=== PATIENT | male | born 1960 | race Caucasian/White ===

== ENCOUNTER 2017-06-17 17:18 | Emergency (ER) | payer OTHER ==
[2017-06-17 18:40] VITALS: BP 150/84
--- NOTE | 2017-06-17 18:58 | UC ---
Ear Complaint HPI - HPI Summary HPI Summary: Ear pain and pressure x 1 week. Waking up "drenched in sweat" every morning. Chills since last night, feels feverish now. Always has productive cough when he lies down. Concerned he has ear infections. Recently dxed with bronchitis, put on augmentin -- he finished this about 2 weeks ago. - History of Current Complaint Stated Complaint: HEADACHE/SORE THROAT/RIGHT EAR Time Seen by Provider: 06/17/17 18:38 Hx Obtained From: Patient Onset/Duration: Gradual Onset, Lasting Days Severity Initially: Mild Severity Currently: Moderate Associated Signs/Symptoms: Positive: Hearing Loss, URI Symptoms - Allergies/Home Medications Allergies/Adverse Reactions: Allergies Allergy/AdvReac Type Severity Reaction Status Date / Time Erythromycin AdvReac GI Verified 06/17/17 18:40 Home Medications: Home Medications Fluticasone NASAL SPRAY 50MCG* [Flonase NASAL SPRAY 50MCG*] 2 spray BOTH NARES DAILY 06/17/17 [History Confirmed 06/17/17] Lisinopril TAB* [Prinivil TAB 5 MG*] 1 tab PO DAILY 06/17/17 [History Confirmed 06/17/17] PMH/Surg Hx/FS Hx/Imm Hx Cardiovascular History: Hypertension Respiratory History: COPD - Surgical History Surgical History: None - Family History Known Family History: Positive: Unknown - Social History Alcohol Use: None Substance Use Type: None Smoking Status (MU): Light Every Day Tobacco Smoker Type: Cigarettes Amount Used/How Often: reports "under 1 ppd" Cessation Counseling: Patient Advised to Stop - Immunization History Most Recent Influenza Vaccination: 7310-0400 Review of Systems Constitutional: Fever, Chills Skin: Negative Eyes: Negative ENT: Sore Throat, Ear Ache Respiratory: Cough Cardiovascular: Negative Gastrointestinal: Negative Genitourinary: Negative Motor: Negative Neurovascular: Negative Musculoskeletal: Negative Neurological: Negative Psychological: Negative Is Patient Immunocompromised?: No All Other Systems Reviewed And Are Negative: Yes Physical Exam Triage Information Reviewed: Yes Appearance: No Pain Distress, Other: - poor grooming Vital Signs: Initial Vital Signs Temp 100.5 F 06/17/17 18:35 Pulse 90 06/17/17 18:35 Resp 17 06/17/17 18:35 BP 150/84 06/17/17 18:35 Pulse Ox 99 06/17/17 18:35 Vital Signs Reviewed: Yes Eye Exam: Normal Eyes: Positive: Conjunctiva Clear ENT: Positive: Hearing grossly normal, Pharynx normal, TMs normal. Negative: TM bulging, TM dull, TM red, Tonsillar swelling, Hoarse voice Dental Exam: Other - edentulous Neck exam: Normal Respiratory: Positive: Chest non-tender, Lungs clear, Normal breath sounds, No respiratory distress, No accessory muscle use Cardiovascular Exam: Normal Cardiovascular: Positive: RRR, No Murmur Musculoskeletal Exam: Normal Neurological Exam: Normal Neurological: Positive: Alert Psychological Exam: Normal Skin Exam: Normal Ear Complaint Course/Dx - Course Course Of Treatment: Rapid flu negative - Differential Dx/Diagnosis Provider Diagnoses: viral syndrome. [id number] Discharge - Discharge Plan Condition: Stable Disposition: HOME Prescriptions: Oseltamivir CAP* [Tamiflu CAP*] 75 mg PO BID #9 cap Patient Education Materials: Viral Syndrome (ED) Referrals: Janes Mcgowan MD [Primary Care Provider] - If Needed Additional Instructions: Take the tamiflu; I still suspect flu despite your rapid results. If you have fever longer than 5 days or trouble breathing, please see Dr. Mcgowan.
[2017-06-17] MEDS ORDERED: Oseltamivir CAP* 75 MG PO ONE (19:16)
== END 2017-06-17 19:24 | disposition home or self-care (01) ==
LOC: UCCORT 17:18
DX: B34.9 Viral infection, unspecified (principal); J11.1 Influenza due to unidentified influenza virus with other respiratory manifestations
CPT/HCPCS: 87502; 99212; A9270-GY; G0463

== ENCOUNTER 2018-09-05 09:44 | Inpatient (IN) | payer OTHER ==
--- NOTE | 2018-08-23 19:13 | HP ---
HISTORY AND PHYSICAL: DATE OF ADMISSION/SURGERY: 09/05/18 DATE OF OFFICE VISIT: 08/23/18 SURGEON: Wnidy Diane MD * (DICTATED BY OMAR GREEN) PROCEDURE: Left total hip arthroplasty. CHIEF COMPLAINT: Left hip pain. HISTORY OF PRESENT ILLNESS: Mr. Liu is a 58-year-old gentleman with continued complaints of left hip pain. He has failed conservative treatment and elected to proceed with a left total hip arthroplasty. PAST MEDICAL HISTORY: Hypertension and COPD. PAST SURGICAL HISTORY: Denies. CURRENT MEDICATIONS: 1. Lisinopril/hydrochlorothiazide 20/12.5 mg a day. 2. Fluticasone nasal spray as needed. 3. Zyrtec Allergy as needed. 4. Hydrocodone as needed. ALLERGIES: To ERYTHROMYCIN. FAMILY HISTORY: Diabetes. SOCIAL HISTORY: He is a 58-year-old gentleman, lives alone. Smokes 1 to 2 packs per day and some occasional marijuana. Denies use of alcohol. REVIEW OF SYSTEMS: A complete 14-point review of systems was reviewed with the patient. It was positive for COPD. He denies history of DVT, PE, hepatitis, HIV , or anesthesia problems. PHYSICAL EXAMINATION GENERAL: He is well developed, well nourished, in no acute distress. VITAL SIGNS: He stands 66 inches tall, weighs 162 pounds. Blood pressure is 111/66 and his heart rate is 82. HEENT: Normocephalic, atraumatic. NECK: Supple. No palpable lymph nodes. PULMONARY: The lungs are clear to auscultation bilaterally. CARDIO: Regular rate and rhythm. Strong S1, S2. ABDOMEN: Soft, nontender, nondistended. NEUROLOGICAL: He is alert and oriented x3. MUSCULOSKELETAL: Left lower extremity: The skin is intact. There are no open wounds or abrasions. He walks with an antalgic-type gait favoring his left hip. He has decreased internal and external rotation of the left hip. He has a 2+ dorsalis pedis pulse. He is able to dorsiflex and plantarflex and has intact sensation. ASSESSMENT AND PLAN: Mr. Liu is a 58-year-old gentleman with end-stage osteoarthritis of the left hip. He has failed conservative treatment and elected to proceed with a left total hip arthroplasty. The surgery is scheduled for 09/05/[address] Diane discussed the risks and benefits of the surgery at today's visit and all of his questions were answered. He will follow up with Dr. Diane 2 weeks after the surgery. OMAR GREEN [id number]/[facility] #: [id number] JEY
[~2018-09-05 09:44] MED LIST: Lactated Ringers 1000 ML Bag* 1,000 ML IV SCH; Magnesium Sulf 4 GM/100 ML IV* 4,000 MG/100 ML BAG IVPB ONE
--- OUTSIDE RECORDS SUMMARY | 2018-09-05 09:47 | XMS REPORT | Continuity of Care Document ---
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 Active Onset: 07/12/2018 Localized, primary osteoarthritis of the Windy Diane M.D. Active pelvic region and thigh Onset: 07/12/2018 Rheumatoid arthritis Windy Diane M.D. 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 Tobacco Use Start: Unknown Current Cigarette Smoker 2 Packs Daily Smoking Status Reviewed: 08/23/18 Current Cigarette Smoker 2 Packs Daily ETOH Use Rarely consumes alcohol Tobacco Use Start: Unknown Patient is a current 1 to 2 packs per smoker, smokes every day day Recreational Drug Use Denies Drug Use Exercise Type/Frequency Exercises sporadically Allergies, Adverse Reactions, Alerts Date Description Reaction Status Severity Comments 05/08/2014 Bee Sting Active 06/27/2018 Erythromycin Nausea Active 05/08/2014 NKDA Inactive Medications Medication Date Status Form Strength Qnty SIG Indications Ordering Provider Lisinopril-Hyd Active Tablets 20-12.5mg 1 PO q Unknown rochlorothiazi 000 day de Fluticasone Active Suspension 50mcg/Act 2 spray Unknown Propionate 000 q day Zyrtec Allergy Active Capsules 10mg 30caps 1 by Unknown 000 mouth every day Hydrocodone-Ac Active Tablets 10-325mg Blair, etaminophen 000 Derek LNeris, DIRECTOR [employer] MANAGEMENT Amoxicillin Hx Tablets 875mg 1 PO Unknown 000 - tid 019 Medications Administered in Office Medication Date Status Form Strength Qnty SIG Indications Ordering Provider Depomedrol Administered Injection Windy 40MG 019 Ayana Diane Immunizations Description No Information Available Vital Signs Date Vital Result Comment 08/23/2018 1:27pm Height 66 inches 5'6" Weight 164.00 lb BP Systolic 111 mmHg BP Diastolic 66 mmHg Respiratory Rate 15 /min Pain Level 4 BMI (Body Mass Index) 26.5 kg/m2 08/02/2018 1:07pm Height 66 inches 5'6" Weight 174.00 lb BP Systolic 111 mmHg BP Diastolic 64 mmHg Respiratory Rate 16 /min Pain Level 3 BMI (Body Mass Index) 28.1 kg/m2 07/17/2018 2:41pm Height 66 inches 5'6" Weight 178.00 lb BP Systolic Sitting 140 mmHg BP Diastolic Sitting 80 mmHg Pain Level 0 BMI (Body Mass Index) 28.7 kg/m2 07/12/2018 12:56pm Height 66 inches 5'6" Weight 178.00 lb BP Systolic 123 mmHg BP Diastolic 71 mmHg Respiratory Rate 15 /min Pain Level 6 BMI (Body Mass Index) 28.7 kg/m2 06/27/2018 10:34am Height 66 inches 5'6" Weight 180.00 lb Heart Rate 80 /min BP Systolic Sitting 146 mmHg BP Diastolic Sitting 82 mmHg Respiratory Rate 16 /min Pain Level 3 BMI (Body Mass Index) 29.0 kg/m2 05/08/2014 12:41pm Height 66 inches 5'6" Weight 164.12 lb Heart Rate 68 /min BP Systolic Sitting 110 mmHg BP Diastolic Sitting 62 mmHg Respiratory Rate 16 /min BMI (Body Mass Index) 26.5 kg/m2 Results Test Date Facility Test Result H/L Range Note Xray 07/12/2018 [facility] In House Inj/Aspir Major JT Or Bursa W/ <pending> US Procedures Date Code Description Status 07/12/2018 62389 Inj/Aspir Major JT Or Bursa W/ US Completed Encounters Type Date Location Provider Dx Diagnosis Office Visit 08/02/2018 Orthopedic Windy Diane, M16.12 Unilateral primary 1:15p [facility] osteoarthritis, left hip M25.552 Pain in left hip 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 M06.052 Rheumatoid arthritis without rheumatoid factor, left hip Office Visit 07/17/2018 [facility] Sharon Selwyn, M16.12 Unilateral primary 3:00p Of [facility] AGUIRRE osteoarthritis, left hip Office Visit 07/12/2018 Orthopedic Windy M54.32 Sciatica, left side 1:00p [facility] Ayana Diane C.M.ANeris M06.052 Rheumatoid arthritis without rheumatoid factor, left hip M25.552 Pain in left hip M16.12 Unilateral primary osteoarthritis, left hip 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 378.81 Palsy Of [facility] Deisy Camara M.D. Conjugate Gaze Plan of Treatment Future Appointment(s):09/16/2018 1:00 pm - Windy Diane M.D. at [facility]09/05/2018 1:30 pm - TETO Navarro at [facility]09/05/2018 1:30 pm - OMAR Huerta at [facility]09/05/2018 1:30 pm - Windy Diane M.D. at [facility]08/23/2018 - Windy Diane M.D.M16.12 Unilateral primary osteoarthritis, left hipFollow up:Follow up: 2 weeks after auamyzpG78.552 Pain in left hip
--- OUTSIDE RECORDS SUMMARY | 2018-09-05 09:48 | XMS REPORT | Continuity of Care Document ---
:1960 External Reference #:[id number] Author Name Derek Blair N.P. 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 [address] [place] [address] Advance Directives Description No Information Available Problems Date Description Provider Status Onset: 05/26/2014 Essential hypertension Cassidy Butt FNP Active Onset: 09/18/2011 Tobacco user Janes Mcgowan M.D. Active Onset: 05/01/2013 Arthralgia of the ankle and/or foot Janes Mcgowan M.D. Active Onset: 04/29/2014 Total oculomotor nerve palsy Cassidy Butt FNP Active Onset: 05/26/2014 Seasonal allergy Cassidy Butt FNP Active Onset: 05/26/2014 Environmental allergy Cassidy Butt FNP Active Onset: 10/09/2014 Atopic dermatitis Janes Mcgowan M.D. Active Onset: 10/09/2014 Gout Janes Mcgowan M.D. Active Onset: 09/18/2011 Chronic obstructive lung disease Janes Mcgowan M.D. Inactive Inactive: 04/22/2014 Onset: 09/18/2011 Allergic rhinitis Janes Mcgowan M.D. Inactive Inactive: 05/26/2014 Family History Date Family Member(s) Observation Comments Father due to "Not Relevant" () Father 67 Father Diabetes Father due to Congestive Heart Failure () Father Non Insulin Dependent Diabetes Father due to at age 67 () Father Dementia Mother 73 Mother Diabetes Mother Non Insulin Dependent Diabetes Mother tremors Children 2 Siblings 4 First Brother Kidney And Gastro Issues Social History Type Date Description Comments Sex Unknown Marital Status Legal Status: Tobacco Use Start: Unknown Current Cigarette Smoker Tobacco Use Start: Unknown Current Cigarette Smoker 1 Pack Daily Smoking Status Reviewed: 07/26/18 Current Cigarette Smoker 1 Pack Daily ETOH Use Rarely consumes alcohol Tobacco Use Start: Unknown Patient is a current smoker, smokes every day Allergies, Adverse Reactions, Alerts Date Description Reaction Status Severity Comments 11/29/2015 Erythromycin Nausea and Vomiting Active 09/15/2011 NKDA Inactive Medications Medication Date Status Form Strength Qnty SIG Indications Ordering Provider Claritin 07/03/19 Active Tablets 10mg 30tabs 1 by J30.9 Juan M, 19 mouth Ahmad M., every day M.D. Hydrocodone-Ac 05/28/20 Active Tablets 10-325mg 60tabs 1 tab by M25.552 Juan M, etaminophen 18 mouth Ahmad M., every 4 M.D. hours as needed M79.605 M25.562 Flonase 07/06/2017 Active Suspension 50mcg/Act 47.400ml 1 J30.9 Juan M, Allergy intranasal Ahmad Relief puff twice M., a day M.D. Prednisolone 07/06/2017 Active Suspension 1% 10ml 1 drops H10.45 Juan M, Acetate both eyes Ahmad twice a day M., as needed M.D. Aspir-81 05/20/[address] 81mg 30tabs 1 by mouth I10 Daquan, every day Kimberl y, SOAP MIXER Lisinopril-Hy 04/22/2014 Active Tablets 20-12.5mg 90tabs take 1 I10 Juan M, drochlorothia tablet by Janes morton mouth once M., daily in in M.D. the morning I10 Zyrtec Allergy 04/22/2014 Active Capsules 10mg OTC take 1 J30.9 Daquan, tablet at [place], bedtime SOAP MIXER as needed Tobramycin 07/26/2018 - Hx Solution 0.3% 5ml 2 drops H10.021 Juan M, 07/30/2018 both eyes Ahmahannah Starks, three M.D. times a day Cipro 07/26/2018 - Hx Tablets 500mg 20tabs 1 tab by H66.91 Juan M, 08/05/2018 mouth Janes MNeris, twice a M.D. day Cipro 07/12/2018 - Hx Tablets 500mg 20tabs 1 tab by J20.9 Juan M, 07/18/2018 mouth Janes Starks, twice a M.D. day Azithromycin 07/03/2018 - Hx Tablets 250mg 6tabs z xu uad J20.9 Juan M, 07/12/2018 Janes Starks, MCatarina. Prednisone 05/28/2018 - Hx Tablets 20mg 20tabs 2 tab by M25.552 Juan M, 06/13/2018 mouth Leixsmahannah M., daily 4 M.D. days,30x3 d,20x2d,1 0x7d Cipro 10/24/2017 - Hx Tablets 500mg 30tabs 1 tab by J20.9 Juan M, 11/08/2017 mouth Ahmahannah MNeris, twice a M.D. day Prednisone 10/24/2017 - Hx Tablets 20mg 20tabs 2 tab by J20.9 Juan M, 11/09/2017 mouth Ahmad M., daily 4 M.D. days,30x3 d,20x2d,1 0x7d Cipro 09/19/2017 - Hx Tablets 500mg 30tabs 1 tab by J20.9 Juan M, 09/29/2017 mouth Ahmahannah M., twice a M.D. day Prednisone 09/19/2017 - Hx Tablets 20mg 20tabs 2 tab by J20Ted Mcgowan, 10/05/2017 mouth Ahmad M., daily 4 M.D. days,30x3 d,20x2d,1 0x7d Cipro 07/27/2017 - Hx Tablets 500mg 30tabs 1 tab by Andie Nailshdi, 08/09/2017 mouth Ahmad M., twice a M.D. day Prednisone 07/06/2017 - Hx Tablets 20mg 18tabs 3 tab by Andie Nailshdi, 07/16/2017 mouth Ahmad M., daily 3 M.D. days, then 2 tab daily x 3 d , then 1 tab daily 3d Cipro 07/06/2017 - Hx Tablets 500mg 30tabs 1 tab by Andie Nailshdi, 07/18/2017 mouth Ahmad M., twice a M.D. day Prednisone 06/21/2017 - Hx Tablets 20mg 20tabs 2 tab by Andie Mcgowan, 07/03/2017 mouth Ahmad M., daily 4 M.D. days,30mg x3d,20mgx 2d,10gmx7 d Augmentin 06/21/2017 - Hx Tablets 875-125 20tabs 1 tab by Andie Nailshdi, 07/03/2017 mg mouth Ahmad M., twice a M.D. day x 10 days Tobramycin 05/17/2017 - Hx Solution 0.3% 10ml 2 drops H10.021 [facility], 05/22/2017 both eyes Ahmad M., three M.D. times a day Amoxicillin/Clav 05/17/2017 - Hx Tablets 875-125 30tabs 1 tab by juan manuel Baroneanate 05/27/2017 mg mouth Ahmad M., Potassium twice a M.D. day Amoxicillin/Clav 04/24/2017 - Hx Tablets 875-125 30tabs 1 tab by juan manuel Baroneanate 05/07/2017 mg mouth Ahmad M., Potassium twice a M.D. day Prednisone 04/24/2017 - Hx Tablets 20mg 20tabs 2 tab by Andie Mcgowan, 05/15/2017 mouth Ahmad M., daily 4 M.D. days,30x3 d,20x2d,1 0x7d Amoxicillin/Clav 03/23/2017 - Hx Tablets 875-125 30tabs 1 tab by perla Barone 04/07/2017 mg mouth Ahmahannah MNeris, Potassium twice a M.D. day Prednisone 03/23/2017 - Hx Tablets 20mg 20tabs 2 tab by Andie Mcgowan, 04/08/2017 mouth Ahmahannah M., daily 4 M.D. days,30x3 d,20x2d,1 0x7d Ciprofloxacin 02/23/2017 - Hx Tablets 500mg 30tabs 1 by Andie Mcgowan, HCL 03/05/2017 mouth Ahmahannah MNeris, twice a M.D. day Prednisone 02/23/2017 - Hx Tablets 20mg 20tabs 2 tab by Andie Mcgowan, 03/11/2017 mouth Lexismahannah M., daily 4 M.D. days,30x3 d,20x2d,1 0x7d Ciprofloxacin 02/24/2016 - Hx Tablets 500mg 30tabs 1 by Andie Mcgowan, HCL 03/10/2016 mouth Ahmahannah M., twice a M.D. day Prednisone 02/24/2016 - Hx Tablets 20mg 20tabs 2 tab by Andie Mcgowan, 03/11/2016 mouth Ahmad M., daily 4 M.D. days,30x3 d,20x2d,1 0x7d Amoxicillin 01/18/2016 - Hx Tablets 500mg 90tabs 2 tab by H66.93 Juan M, 01/28/2016 mouth Lexismahannah Starks, three M.D. times a day Andie Prednisone 01/18/2016 - Hx Tablets 20mg 20tabs 2 tab by mouth daily 4 R06.02 Juan M, 02/03/2016 days,30x3d,20x2d,10x7d Janes Starks M.D. M25.562 Andie Cipro 11/29/2015 - Hx Tablets 500mg 20tabs 1 twice a Janes Mcgowan 12/09/2015 day Layla Starks. Amoxicillin 06/29/2015 - Hx Tablets 500mg 90tabs 2 tab by Andie Mcgowan, [facility] 07/14/2015 mouth three Ayana Starks times a day Prednisone 06/29/2015 - Hx Tablets 20mg 20tabs 2 tab by R06.02 [facility], [facility] 07/15/2015 mouth daily Ayana Starks 4 days,30x3d,2 0x2d,10x7d M25.562 J44.9 Prednisone 02/08/2015 - Hx Tablets 20mg 19tabs 2 tab by mouth daily 4 461.8 [facility], 02/25/2015 days,30x3d,20x2d,10x7d Janes Starks M.D. 786.05 461.8 Amoxicillin 02/08/2015 - Hx Capsules 500mg 40caps 2 by mouth 461.8 [facility], [facility] 02/08/2015 twice a day Ayana Starks 382.9 Biaxin 02/08/2015 - Hx Tablets 500mg 20tabs 1 tab by mouth 461.8 [facility] , [facility] 02/21/2015 twice a day Ayana Starks 382.9 Azithromycin 02/02/2015 - Hx Tablets 250mg 6tabs take two 461.8 [facility], 02/06/2015 tablets by royer Myers as one M.D. dose on the first day then take one daily thereafter x 4 days Allopurinol 10/30/2014 - Hx Tablets 100mg 90tabs 1 by mouth 274.9 [facility] , 10/30/2014 every day Janes Starks M.D. 719.44 719.47 Allopurinol 10/30/2014 - Hx Tablets 300mg 30tabs 1 tab by M10.9 [facility], [facility] 06/18/2017 mouth every Ayana Starks day M25.572 Colchicine 10/29/2014 - Hx Tablets 0.6mg 90tabs 1 tab by 274.9 Juan M, [facility] 10/30/2014 mouth three Ayana Starks times a day as needed 719.44 719.47 Indomethacin 10/09/2014 - Hx Capsules 50mg 90caps 1 tab by 274.9 [facility] , [facility] mouth three MAyana Cordon times a day as needed 719.44 Amoxicillin 04/29/2014 - Hx Tablets 875mg 30tabs take 1 381.10 Daquan, 09/30/2014 tablet by Cassidy mouth SOAP MIXER three times a day for 10 days Flonase 04/22/2014 - Hx Suspension 50mcg/Ac 16gm two sprays J30.9 Daquan , 07/06/2017 t per Cassidy, nostril SOAP MIXER once a day as needed for allergy relief No Active 12/18/2013 - Hx Unknown Medications 12/18/2013 Biaxin 12/18/2013 - Hx Tablets 500mg 20tabs 1 tab by 461.8 [facility] 03[facility]2014 mouth Ayana Starks twice a day x10 days No Active 11/17/2013 - Hx [facility] Medications 11/17/2013 Ayana Starks Amoxicillin 11/17/2013 - Hx Tablets 500mg 42tabs 1 by mouth 486 [facility], [facility] 11/27/2013 three Ayana Starks times a day 382.9 Amoxicillin 04/28/2013 - Hx Tablets 500mg 30tabs 1 three 382.9 [facility] 05[facility] times a day Ayana Starks x10 day 461.8 466.0 Prednisone 04/28/2013 - Hx Tablets 20mg 19tabs 2 tab by mouth daily 4 496 [facility], 04/01/2014 days,30x3d,20x2d,10x7d Janes Starks M.D. 786.05 461.8 Amoxicillin 08/26/2012 - Hx Tablets 500mg 30tabs 1 three 382.9 Juan M, [facility] 09/[facility]2012 times a day Ayana Starks x10 day 461.8 Prednisone 08/26/2012 - Hx Tablets 20mg 8tabs 2 tab by 478.19 Juan M, [facility] 08/31/2012 mouth daily Ayana Starks 4 days Indocin 05/30/2012 - Hx Suppository 50mg 90units 1 three 719.43 Juan M, [facility] 02/19/2013 times a day Ayana Starks Medications Administered in Office Medication Date Status Form Strength Qnty SIG Indications Ordering Provider Lon 250 11/24/19 Administered Injection Juan M, 10 Janes Starks M.D. Immunizations Description No Information Available Vital Signs Date Vital Result Comment 08/06/2018 10:18am BP Systolic 122 mmHg BP Diastolic 82 mmHg Height 67 inches 5'7" Weight 158.00 lb BMI (Body Mass Index) 24.7 kg/m2 Heart Rate 94 /min Respiratory Rate 18 /min 07/26/2018 2:02pm BP Systolic 122 mmHg BP Diastolic 72 mmHg Height 67 inches 5'7" Weight 159.00 lb BMI (Body Mass Index) 24.9 kg/m2 Heart Rate 82 /min Body Temperature 97.1 F Respiratory Rate 16 /min 07/03/2018 11:00am BP Systolic 118 mmHg BP Diastolic 68 mmHg Height 67 inches 5'7" Weight 162.00 lb BMI (Body Mass Index) 25.4 kg/m2 Heart Rate 98 /min Body Temperature 97.7 F Respiratory Rate 16 /min 06/20/2018 9:27am BP Systolic 138 mmHg BP Diastolic 70 mmHg Height 67 inches 5'7" Weight 164.00 lb BMI (Body Mass Index) 25.7 kg/m2 Heart Rate 78 /min Respiratory Rate 16 /min 05/28/2018 9:06am BP Systolic 124 mmHg BP Diastolic 80 mmHg Height 67 inches 5'7" Weight 169.00 lb BMI (Body Mass Index) 26.5 kg/m2 Heart Rate 76 /min Respiratory Rate 16 /min 10/24/2017 11:01am BP Systolic 108 mmHg BP Diastolic 70 mmHg Height 67 inches 5'7" Weight 177.00 lb BMI (Body Mass Index) 27.7 kg/m2 Heart Rate 73 /min Body Temperature 97.6 F Respiratory Rate 18 /min 09/19/2017 9:36am BP Systolic 122 mmHg BP Diastolic 78 mmHg Height 67 inches 5'7" Weight 179.00 lb BMI (Body Mass Index) 28.0 kg/m2 Heart Rate 77 /min Body Temperature 97.1 F Respiratory Rate 18 /min 07/27/2017 10:09am BP Systolic 128 mmHg BP Diastolic 80 mmHg Height 67 inches 5'7" Weight 169.00 lb BMI (Body Mass Index) 26.5 kg/m2 Heart Rate 65 /min Body Temperature 96.9 F Respiratory Rate 18 /min 07/06/2017 10:04am BP Systolic 130 mmHg BP Diastolic 82 mmHg Height 67 inches 5'7" Weight 174.00 lb BMI (Body Mass Index) 27.2 kg/m2 Heart Rate 69 /min Body Temperature 97.0 F Respiratory Rate 18 /min 06/21/2017 10:28am BP Systolic 148 mmHg BP Diastolic 82 mmHg Height 67 inches 5'7" Weight 171.00 lb BMI (Body Mass Index) 26.8 kg/m2 Heart Rate 105 /min Body Temperature 96.7 F Respiratory Rate 18 /min 05/17/2017 10:44am BP Systolic 142 mmHg BP Diastolic 80 mmHg Height 67 inches 5'7" Weight 166.00 lb BMI (Body Mass Index) 26.0 kg/m2 Heart Rate 97 /min Body Temperature 97.8 F Respiratory Rate 18 /min 04/24/2017 11:10am BP Systolic 152 mmHg BP Diastolic 78 mmHg Height 67 inches 5'7" Weight 168.00 lb BMI (Body Mass Index) 26.3 kg/m2 Heart Rate 62 /min Body Temperature 97.2 F Respiratory Rate 16 /min 03/23/2017 9:38am BP Systolic 132 mmHg BP Diastolic 82 mmHg Height 67 inches 5'7" Weight 171.00 lb BMI (Body Mass Index) 26.8 kg/m2 Heart Rate 66 /min Body Temperature 97.0 F Respiratory Rate 18 /min 03/02/2017 11:17am BP Systolic 126 mmHg BP Diastolic 72 mmHg Height 67 inches 5'7" Weight 171.00 lb BMI (Body Mass Index) 26.8 kg/m2 Heart Rate 64 /min Respiratory Rate 18 /min 02/23/2017 10:57am BP Systolic 124 mmHg BP Diastolic 88 mmHg Height 67 inches 5'7" Weight 171.00 lb BMI (Body Mass Index) 26.8 kg/m2 Heart Rate 54 /min Respiratory Rate 16 /min 02/24/2016 10:50am BP Systolic 154 mmHg BP Diastolic 86 mmHg Height 67 inches 5'7" Weight 172.00 lb BMI (Body Mass Index) 26.9 kg/m2 Heart Rate 80 /min Respiratory Rate 22 /min 01/18/2016 10:57am BP Systolic 136 mmHg BP Diastolic 80 mmHg Height 67 inches 5'7" Weight 171.00 lb BMI (Body Mass Index) 26.8 kg/m2 Heart Rate 78 /min Respiratory Rate 20 /min 11/29/2015 11:12am BP Systolic 128 mmHg BP Diastolic 72 mmHg Height 67 inches 5'7" Weight 171.00 lb BMI (Body Mass Index) 26.8 kg/m2 Heart Rate 74 /min Respiratory Rate 17 /min 07/09/2015 10:16am BP Systolic 121 mmHg BP Diastolic 77 mmHg Height 67 inches 5'7" Weight 178.00 lb BMI (Body Mass Index) 27.9 kg/m2 Heart Rate 56 /min Respiratory Rate 18 /min 06/29/2015 11:10am BP Systolic 123 mmHg BP Diastolic 83 mmHg Height 67 inches 5'7" Weight 172.00 lb BMI (Body Mass Index) 26.9 kg/m2 Heart Rate 75 /min Body Temperature 96.5 F Respiratory Rate 18 /min 02/08/2015 9:44am BP Systolic 141 mmHg BP Diastolic 87 mmHg Height 67 inches 5'7" Weight 171.00 lb BMI (Body Mass Index) 26.8 kg/m2 Heart Rate 56 /min Body Temperature 97.4 F Respiratory Rate 16 /min 02/02/2015 3:49pm BP Systolic 147 mmHg BP Diastolic 89 mmHg Height 67 inches 5'7" Weight 171.00 lb BMI (Body Mass Index) 26.8 kg/m2 Heart Rate 56 /min Body Temperature 97.3 F Respiratory Rate 16 /min 10/29/2014 11:54am BP Systolic 1008 mmHg BP Diastolic 71 mmHg Height 67 inches 5'7" Weight 170.00 lb BMI (Body Mass Index) 26.6 kg/m2 Heart Rate 75 /min Body Temperature 96.3 F Respiratory Rate 18 /min 10/16/2014 8:35am BP Systolic 139 mmHg BP Diastolic 93 mmHg Height 67 inches 5'7" Weight 171.00 lb BMI (Body Mass Index) 26.8 kg/m2 Heart Rate 66 /min Respiratory Rate 18 /min 10/09/2014 9:09am BP Systolic 142 mmHg BP Diastolic 89 mmHg Height 67 inches 5'7" Weight 168.00 lb BMI (Body Mass Index) 26.3 kg/m2 Heart Rate 66 /min Respiratory Rate 16 /min 05/20/2014 9:05am BP Systolic 114 mmHg BP Diastolic 72 mmHg Height 67 inches 5'7" Weight 164.00 lb BMI (Body Mass Index) 25.7 kg/m2 Heart Rate 60 /min Respiratory Rate 16 /min 04/29/2014 10:00am BP Systolic 118 mmHg BP Diastolic 78 mmHg BP Systolic Recheck 122 mmHg BP Diastolic Recheck 86 mmHg Height 67 inches 5'7" Weight 159.00 lb BMI (Body Mass Index) 24.9 kg/m2 Heart Rate 79 /min Respiratory Rate 14 /min 04/22/2014 2:10pm BP Systolic 160 mmHg BP Diastolic 92 mmHg Height 67 inches 5'7" Weight 162.00 lb BMI (Body Mass Index) 25.4 kg/m2 Heart Rate 63 /min Body Temperature 97.0 F Respiratory Rate 20 /min 03/18/2014 3:06pm BP Systolic 175 mmHg BP Diastolic 93 mmHg Height 67 inches 5'7" Weight 164.00 lb BMI (Body Mass Index) 25.7 kg/m2 Heart Rate 65 /min Body Temperature 97.7 F Respiratory Rate 18 /min 12/18/2013 10:00am BP Systolic 183 mmHg machine BP Diastolic 99 mmHg machine BP Systolic Recheck 186 mmHg manual BP Diastolic Recheck 92 mmHg manual Height 67 inches 5'7" Weight 160.00 lb BMI (Body Mass Index) 25.1 kg/m2 Heart Rate 62 /min Body Temperature 97.0 F Respiratory Rate 18 /min 11/17/2013 10:48am BP Systolic 141 mmHg BP Diastolic 90 mmHg Height 67 inches 5'7" Weight 166.00 lb BMI (Body Mass Index) 26.0 kg/m2 Heart Rate 64 /min Body Temperature 97.1 F Respiratory Rate 18 /min 05/01/2013 10:15am BP Systolic 120 mmHg BP Diastolic 73 mmHg Height 67 inches 5'7" Weight 161.00 lb BMI (Body Mass Index) 25.2 kg/m2 Heart Rate 65 /min Body Temperature 97.6 F Respiratory Rate 18 /min 04/28/2013 1:57pm BP Systolic 154 mmHg BP Diastolic 93 mmHg BP Systolic Recheck 152 mmHg BP Diastolic Recheck 96 mmHg Height 67 inches 5'7" Weight 162.00 lb BMI (Body Mass Index) 25.4 kg/m2 Heart Rate 65 /min Body Temperature 97.4 F 08/26/2012 12:13pm BP Systolic 112 mmHg BP Diastolic 84 mmHg Height 67 inches 5'7" Weight 171.00 lb BMI (Body Mass Index) 26.8 kg/m2 Heart Rate 60 /min Body Temperature 96.3 F Respiratory Rate 16 /min 06/25/2012 10:37am BP Systolic 146 mmHg BP Diastolic 98 mmHg Height 67 inches 5'7" Weight 177.00 lb BMI (Body Mass Index) 27.7 kg/m2 Heart Rate 97 /min Respiratory Rate 20 /min 05/30/2012 9:59am BP Systolic 122 mmHg BP Diastolic 82 mmHg Height 67 inches 5'7" Weight 176.00 lb BMI (Body Mass Index) 27.6 kg/m2 Heart Rate 69 /min Respiratory Rate 16 /min 09/18/2011 10:28am BP Systolic 141 mmHg BP Diastolic 86 mmHg Height 67 inches 5'7" Weight 174.00 lb BMI (Body Mass Index) 27.2 kg/m2 Heart Rate 58 /min Last Menstrual Period 0 Respiratory Rate 14 /min Results Test Date Facility Test Result H/L Range Note Basic Metabolic 06/27/2018 [facility] Sodium 138 mmol/L (136-145) Panel 113 [employer] (607)- - Potassium 4.3 mmol/L (3.6-5.2) Chloride 103 mmol/L (100-108) Co2 26 mmol/L (22-31) Anion Gap 9 mmol/L (7-16) Urea Nitrogen 11 mg/dL (7-24) Creatinine 1.10 mg/dL (0.80-1.30) BUN/Creat Ratio 10.0 RATIO (10.0-20.0) Glucose 84 mg/dL (70-99) Calcium 9.5 mg/dL (8.4-10.2) GFR >60 ml/min/1.73m2 (>59) GFR ( Amer) >60 ml/min/1.73m2 (>59) GFR Interpretation <SEE NOTE> 1 CBC Auto Diff 07/06/2017 [facility] White Blood Count 10.0 10^3/uL N 3.5-10.8 Red Blood Count 5.19 10^6/uL N 4.0-5.4 Hemoglobin 14.9 g/dL N 14.0-18.0 Hematocrit 45 % N 42-52 Mean Corpuscular Volume 87 fL N 80-94 Mean Corpuscular Hemoglobin 29 pg N 27-31 Mean Corpuscular HGB Conc 33 g/dL N 31-36 Red Cell Distribution Width 17 % High 10.5-15 Platelet Count 238 10^3/uL N 150-450 Mean Platelet Volume 9 um3 N 7.4-10.4 Abs Neutrophils 6.9 10^3/uL N 1.5-7.7 Abs Lymphocytes 1.9 10^3/uL N 1.0-4.8 Abs Monocytes 0.9 10^3/uL High 0-0.8 Abs Eosinophils 0.2 10^3/uL N 0-0.6 Abs Basophils 0.1 10^3/uL N 0-0.2 Abs Nucleated RBC 0 10^3/uL Granulocyte % 68.9 % N 38-83 Lymphocyte % 19.3 % Low 25-47 Monocyte % 9.3 % High 1-9 Eosinophil % 1.8 % N 0-6 Basophil % 0.7 % N 0-2 Nucleated Red Blood Cells % 0 Comp Metabolic Panel 07/06/2017 [facility] Sodium 136 mmol/L N 133- 145 Potassium 4.4 mmol/L N 3.5-5.0 Chloride 104 mmol/L N 101-111 Co2 Carbon Dioxide 25 mmol/L N 22-32 Anion Gap 7 mmol/L N 2-11 Glucose 84 mg/dL N 70-100 Blood Urea Nitrogen 17 mg/dL N 6-24 Creatinine 0.95 mg/dL N 0.67-1.17 BUN/Creatinine Ratio 17.9 N 8-20 Calcium 9.5 mg/dL N 8.6-10.3 Total Protein 6.6 g/dL N 6.4-8.9 Albumin 4.0 g/dL N 3.2-5.2 Globulin 2.6 g/dL N 2-4 Albumin/Globulin Ratio 1.5 N 1-3 Total Bilirubin 0.60 mg/dL N 0.2-1.0 Alkaline Phosphatase 65 U/L N 34-104 Alt 27 U/L N 7-52 Ast 22 U/L N 13-39 Egfr Non- 81.1 >60 Egfr 104.4 >60 2 Laboratory test 07/06/2017 [facility] TSH (Thyroid 1.36 mcIU/mL N 0.34-5.60 3 finding Stim Horm) Uric Acid 4.9 mg/dL N 4.4-7.6 4 Vitamin D Total 25(Oh) 15.8 ng/mL Low 20-50 5 Lyme Western Blot 06/21/2017 [facility] Lyme Disease IgG Negative Negative 6 Ab WB Lyme Disease IgG Bands Present No bands detecte <SEE NOTE> kDa 7 Lyme Disease IgM Ab WB Negative Negative Lyme Disease IgM Bands Present No bands detecte <SEE NOTE> kDa 8 Lyme Disease Interpretation See Comment 9 Rapid Influenza A 06/17/2017 [facility] Influenza A NEGATIVE Negative 10 & B Molecular Molecular Influenza B Molecular NEGATIVE Negative Glycohemoglobin A1c 10/09/2014 [place] Glycohemoglobin (A1c) 5.5 % 4.2- 6.3 11 eAG 111 mg/dL Laboratory test finding 10/09/2014 [place] Sedimentation Rate 11 mm/hr 0-20 Uric Acid 4.7 mg/dL 3.5-7.2 Rheumatoid Factor Screen < 10.0 IU/mL 0.0-15.0 Anti-Nuclear Antibodies Direct Positive AU/mL High Negative 12 Comprehensive Metabolic Panel 10/09/2014 [place] Glucose 85 mg/dL 74- 106 BUN 13 mg/dL 7-18 Creatinine 1.2 mg/dL 0.6-1.3 Glom Filtration Rate, Estimate >60 mL/min >60 If >60 mL/min >60 13 BUN/Creat 10.8 ratio Sodium 138 mmol/L 136-145 Potassium 3.9 mmol/L 3.5-5.1 Chloride 104 mmol/L 98-107 Carbon Dioxide 25 mmol/L 21-32 Anion Gap 9 mEq/L 8-16 Calcium 9.4 mg/dL 8.5-10.1 Total Protein 7.8 g/dL 6.4-8.2 Albumin 4.2 g/dL 3.4-5.0 Globulin 3.6 g/dL 1.9-4.3 Alb/Glob 1.2 ratio Bilirubin,Total 0.4 mg/dL 0.2-1.0 Sgot/Ast 12 U/L Low 15-37 14 SGPT/Alt 12 U/L 12-78 Alkaline Phosphatase 94 U/L 45-117 CBC W/Automated Diff 10/09/2014 [place] White Blood Count 8.6 K/uL 3.4- 10.5 Red Blood Count 5.51 M/uL 4.20-5.80 Hemoglobin 15.6 gm/dL 12.8-17.0 Hematocrit 47.5 % 38.0-48.0 Mean Cell Volume 86.2 fl 80.0-96.0 Mean Corpuscular HGB 28.3 pg 27.0-33.0 Mean Corpuscular HGB Conc 32.8 g/dL 31.7-36.0 Platelet Count 278 K/uL 150-400 Red Cell Distri Width SD 45.1 fl 36-51 Red Cell Distri Width %CV 14.4 % 11.6-15.8 Mean Platelet Volume 10.2 fL 6.6-10.6 Neut% 59.4 % 33.0-73.0 Lymph % 24.4 % 17.0-56.0 Carter % 13.8 % High 0.0-10.0 Eo% 2.1 % 0.0-5.0 Bas% 0.3 % 0.1-1.0 Neut# 5.10 K/uL 1.8-7.0 Lymph # 2.09 K/uL 1.8-7.0 Carter # 1.18 K/uL High 0.0-0.8 Eos # 0.18 K/uL 0.0-0.5 Baso # 0.03 K/uL Low 0.1-0.2 CBC/Manual Differential 04/22/2014 [place] White Blood Count 8.7 K/uL 3.4-10.5 Red Blood Count 5.05 M/uL 4.20-5.80 Hemoglobin 14.9 gm/dL 12.8-17.0 Hematocrit 44.5 % 38.0-48.0 Mean Cell Volume 88.1 fl 80.0-96.0 Mean Corpuscular HGB 29.5 pg 27.0-33.0 Mean Corpuscular HGB Conc 33.5 g/dL 31.7-36.0 Platelet Count 325 K/uL 150-400 Red Cell Distri Width %CV 13.9 % 11.6-15.8 Mean Platelet Volume 9.7 fL 6.6-10.6 Total Cells Counted 100 #CELLS Neutrophils% 60 % 33-73 Lymph% 26 % 17-56 Platelet Estimate NORMAL Band% 4 % 0-8 Monocyte% 6 % 0-10 Eosinophil% 2 % 0-5 Basophil% 2 % 0-2 Anisocytosis 0-1+ Macrocytosis 0-1+ Toxic Granulation 0-1+ Differential Comment GIANT PLTS SEEN Comprehensive Metabolic Panel 04/22/2014 [place] Glucose 104 mg/dL 74- 106 BUN 13 mg/dL 7-18 Creatinine 1.0 mg/dL 0.6-1.3 Glom Filtration Rate, Estimate >60 mL/min >60 If >60 mL/min >60 15 BUN/Creat 13.0 ratio Sodium 141 mmol/L 136-145 Potassium 4.0 mmol/L 3.5-5.1 Chloride 108 mmol/L High 98-107 Carbon Dioxide 24 mmol/L 21-32 Anion Gap 13 mEq/L 8-16 Calcium 9.5 mg/dL 8.5-10.1 Total Protein 7.2 g/dL 6.4-8.2 Albumin 3.8 g/dL 3.4-5.0 Globulin 3.4 g/dL 1.9-4.3 Alb/Glob 1.1 ratio Bilirubin,Total 0.3 mg/dL 0.2-1.0 Sgot/Ast 10 U/L Low 15-37 16 SGPT/Alt 15 U/L 12-78 Alkaline Phosphatase 86 U/L 45-117 LDL Cholesterol Profile 04/22/2014 [place] Cholesterol 209 mg/dL 17 Triglycerides 129 mg/dL 18 HDL Cholesterol 36 mg/dL 19 LDL-Cholesterol 147 mg/dL 20 Laboratory test finding 05/30/2012 [place] Uric Acid 4.2 mg/dL 2.1-7.4 Basic Metabolic Panel 05/30/2012 [place] Glucose 78 mg/dL 76-115 BUN 19 mg/dL 5-23 Creatinine 1.1 mg/dL 0.5-1.4 Glom Filtration Rate, Estimate >60 mL/min >60 If >60 mL/min >60 21 BUN/Creat 17.2 ratio Sodium 139 mmol/L 136-145 Potassium 4.3 mmol/L 3.5-5.1 Chloride 106 mmol/L 98-107 Carbon Dioxide 25 mEq/L 18-29 Anion Gap 12 mEq/L 8-16 Calcium 9.6 mg/dL 8.5-10.1 CBC W/Automated Diff 05/30/2012 [place] White Blood Count 7.4 K/uL 3.4- 10.5 Red Blood Count 5.49 M/uL 4.20-5.80 Hemoglobin 15.3 gm/dL 12.8-17.0 Hematocrit 46.5 % 38.0-48.0 Mean Cell Volume 84.7 fl 80.0-96.0 Mean Corpuscular HGB 27.9 pg 27.0-33.0 Mean Corpuscular HGB Conc 32.9 g/dL 31.7-36.0 Platelet Count 272 K/uL 150-400 Red Cell Distri Width SD 45.0 fl 36-51 Red Cell Distri Width %CV 14.8 % 11.6-15.8 Mean Platelet Volume 9.9 fL 6.6-10.6 Neut% 60.5 % 33.0-73.0 Lymph % 27.7 % 17.0-56.0 Carter % 9.2 % 0.0-10.0 Eo% 2.3 % 0.0-5.0 Bas% 0.3 % 0.1-1.0 Neut# 4.47 K/uL 1.8-7.0 Lymph # 2.05 K/uL 1.2-4.0 Carter # 0.68 K/uL High 0.0-0.6 Eos # 0.17 K/uL 0.0-0.5 Baso # 0.02 K/uL Low 0.1-0.2 1 NORMAL KIDNEY FUNCTION OR MILD DISEASE - GFR >OR=60 CHRONIC KIDNEY DISEASE - GFR 15 - 59 RENAL FAILURE - GFR <15 Est. GFR calculation based on the MDRD study equation, which assumes a steady state for creatinine. Est. GFR should not be used for medication dosing. 2 Because ethnic data is not always readily available, this report includes an eGFR for both -Americans and non- Americans. The National Kidney Disease Education Program (NKDEP) does not endorse the use of the MDRD equation for patients that are not between the ages of 18 and 70, are , have extremes of body size, muscle mass, or nutritional status, or are non- or non-. According to the National Kidney Foundation, irrespective of diagnosis, the stage of the disease is based on the level of kidney function: Stage Description GFR(mL/min/1.73 m(2)) 1 Kidney damage with normal or decreased GFR 90 2 Kidney damage with mild decrease in GFR 60-89 3 Moderate decrease in GFR 30-59 4 Severe decrease in GFR 15-29 5 Kidney failure <15 (or dialysis) 3 [id number] 4 [id number] 5 [id number] 6 [id number] 7 No bands detected 8 No bands detected 9 Specific serologic response to B. burgdorferi infection is not detected, but cannot rule out early infection during which low or undetectable antibody levels to B. burgdorferi may be present. If clinically indicated, a new serum specimen should be submitted in 7-14 days. ADDITIONAL INFORMATION CDC criteria require >=5 bands for IgG or >=2 bands for IgM for the Immunoblot to be considered positive. Bands (e.g.,p41) may be detected in patients without Lyme disease, and patterns not meeting the CDC criteria should be interpreted with caution. Immunoblot should be ordered only on specimens that are positive or equivocal by a FDA-licensed Lyme disease antibody screening test (e.g., EIA). Test Performed by: [address] [id number] Clothing Room Supervisor: [id number] 11 Elevated levels of HbA1c suggest the need for more aggressive treatment of glycemia. The [place] [employer] recommends that a primary goal of therapy should be a HbA1c of <7% and that physicians should re-evaluate the treatment regimen in patients with HbA1c values consistently >8%. 12 Performed at: RN - [facility] [address] [id number] Documentation Clerk: Ameena Floyd MD, Phone: [phone] 13 Note: Persistent reduction for 3 months or more in an eGFR <60 mL/min/1.73 m2 defines CKD. Patients with eGFR values >/=60 mL/min/1.73 m2 may also have CKD if evidence of persistent proteinuria is present. The original MDRD equation for estimated GFR is not valid for patients less than 18 years of age. Additional information may be found at www.kdoqi.org. 14 Values below the stated reference ranges of AST and ALT can be seen in normal populations. Clinical correlation is suggested. 15 Note: Persistent reduction for 3 months or more in an eGFR <60 mL/min/1.73 m2 defines CKD. Patients with eGFR values >/=60 mL/min/1.73 m2 may also have CKD if evidence of persistent proteinuria is present. The original MDRD equation for estimated GFR is not valid for patients less than 18 years of age. Additional information may be found at www.kdoqi.org. 16 Values below the stated reference ranges of AST and ALT can be seen in normal populations. Clinical correlation is suggested. 17 Reference Guidelines*: Desirable: ........... < 200 mg/dL Borderline High: ..... 200-239 mg/dL High: ................ >=240 mg/dL * The National Cholesterol Education Program (NCEP) 18 Reference Guidelines*: Normal: ............. < 150 mg/dL Borderline High: .... 150-199 mg/dL High: ............... 200-499 mg/dL Very High: .......... > 500 mg/dL * Source: National Cholesterol Education Program (NCEP) 19 Reference Guidelines*: Low HDL: ..... < 40 mg/dL Normal: ..... 40-60 mg/dL Desirable: ... > 60 mg/dL *The National Cholesterol Education Program(NCEP) 20 Reference Guidelines*: Optimal:........... <100 mg/dL Near Optimal....... 100-129 mg/dL Borderline High.... 130-159 mg/dL High............... 160-189 mg/dL Very High.......... >=190 mg/dL * Source: National Cholesterol Education Program (NCEP) 21 Note: Persistent reduction for 3 months or more in an eGFR <60 mL/min/1.73 m2 defines CKD. Patients with eGFR values >/=60 mL/min/1.73 m2 may also have CKD if evidence of persistent proteinuria is present. The original MDRD equation for estimated GFR is not valid for patients less than 18 years of age. Additional information may be found at www.kdoqi.org. Procedures Date Code Description Status 07/26/2018 59279 Tympanometry Completed 10/24/2017 67785 Tympanometry Completed 05/17/2017 61577 Spirometry Completed 05/17/2017 68179 Tympanometry Completed 03/23/2017 97239 Spirometry Completed 03/23/2017 95962 Tympanometry Completed 03/02/2017 64428 Visual Screening Test Completed 02/23/2017 21835 Spirometry Completed 02/23/2017 99381 Tympanometry Completed 02/24/2016 98247 Tympanometry Completed 02/24/2016 79722 Spirometry Completed 01/18/2016 19641 Spirometry Completed 01/18/2016 53216 Tympanometry Completed 11/29/2015 94132 Tympanometry Completed 06/29/2015 72370 Spirometry Completed 06/29/2015 65117 Tympanometry Completed 02/08/2015 91229 Spirometry Completed 02/08/2015 17112 Tympanometry Completed 04/29/2014 15107 EKG Completed 12/18/2013 36427 Tympanometry Completed 12/18/2013 54267 Spirometry Completed 11/17/2013 33494 Spirometry Completed 11/17/2013 62872 Tympanometry Completed 05/01/2013 71958 Visual Screening Test Completed 05/01/2013 05949 EKG Completed 05/01/2013 25845 Diagnostic Bekesy Audiometry Completed 04/28/2013 29571 Spirometry Completed 04/28/2013 91172 Tympanometry Completed 08/26/2012 51605 Tympanometry Completed 08/26/2012 97202 Spirometry Completed 06/18/2012 [id number] Colonoscopy Completed 09/18/2011 25628 Spirometry Completed 09/18/2011 57745 Tympanometry Completed 06/02/2011 19095 Spirometry Completed 06/02/2011 33082 Tympanometry Completed 04/07/2011 43921 Spirometry Completed 04/07/2011 79861 Tympanometry Completed 11/23/2009 47016 Injection DX/Therapeutic/Prophy Completed 01/09/2005 61833 Tympanometry Completed Encounters Type Date Location Provider Dx Diagnosis Office Visit 08/06/2018 Tita Spaulding.Homero. 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 F17.210 Nicotine dependence, cigarettes, uncomplicated M10.9 Gout, unspecified I10 Essential (primary) hypertension H66.93 Otitis media, unspecified, bilateral R53.83 Other fatigue M15.9 Polyosteoarthritis, unspecified L20.9 Atopic dermatitis, unspecified M79.642 Pain in left hand M25.572 Pain in left ankle and joints of left foot H81.13 Benign paroxysmal vertigo, bilateral R51 Headache H54.7 Unspecified visual loss R06.02 Shortness of breath H10.45 Other chronic allergic conjunctivitis E55.9 Vitamin D deficiency, unspecified M25.552 Pain in left hip M79.605 Pain in left leg M25.562 Pain in left knee H92.01 Otalgia, right ear H66.91 Otitis media, unspecified, right ear H10.021 Other mucopurulent conjunctivitis, right eye J20.9 Acute bronchitis, unspecified J01.40 Acute pansinusitis, unspecified R19.5 Other fecal abnormalities Office Visit 07/26/2018 2:15p Janes Cabezas, J44.9 Chronic obstructive M.D. 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 F17.210 Nicotine dependence, cigarettes, uncomplicated M10.9 Gout, unspecified I10 Essential (primary) hypertension H66.93 Otitis media, unspecified, bilateral R53.83 Other fatigue M15.9 Polyosteoarthritis, unspecified L20.9 Atopic dermatitis, unspecified M79.642 Pain in left hand M25.572 Pain in left ankle and joints of left foot H81.13 Benign paroxysmal vertigo, bilateral R51 Headache H54.7 Unspecified visual loss R06.02 Shortness of breath H10.45 Other chronic allergic conjunctivitis E55.9 Vitamin D deficiency, unspecified M25.552 Pain in left hip M79.605 Pain in left leg M25.562 Pain in left knee H92.01 Otalgia, right ear H66.91 Otitis media, unspecified, right ear H10.021 Other mucopurulent conjunctivitis, right eye J20.9 Acute bronchitis, unspecified J01.40 Acute pansinusitis, unspecified Office Visit 07/03/2018 11:15a [place] [facility] Derek Blair, J44.9 Chronic obstructive N.P. 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 F17.210 Nicotine dependence, cigarettes, uncomplicated M10.9 Gout, unspecified I10 Essential (primary) hypertension R53.83 Other fatigue M15.9 Polyosteoarthritis, unspecified L20.9 Atopic dermatitis, unspecified M79.642 Pain in left hand M25.572 Pain in left ankle and joints of left foot H81.13 Benign paroxysmal vertigo, bilateral R51 Headache H54.7 Unspecified visual loss H10.45 Other chronic allergic conjunctivitis R06.02 Shortness of breath E55.9 Vitamin D deficiency, unspecified M25.552 Pain in left hip M79.605 Pain in left leg M25.562 Pain in left knee 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 F17.210 Nicotine dependence, cigarettes, uncomplicated M10.9 Gout, unspecified I10 Essential (primary) hypertension R53.83 Other fatigue M15.9 Polyosteoarthritis, unspecified L20.9 Atopic dermatitis, unspecified M79.642 Pain in left hand M25.572 Pain in left ankle and joints of left foot H81.13 Benign paroxysmal vertigo, bilateral R51 Headache H54.7 Unspecified visual loss H10.45 Other chronic allergic conjunctivitis R06.02 Shortness of breath E55.9 Vitamin D deficiency, unspecified M25.552 Pain in left hip M79.605 Pain in left leg M25.562 Pain in left knee Office Visit 06/20/2018 9:30a [facility] Janes Mcgowan J44.9 Chronic obstructive M., M.D. 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 F17.210 Nicotine dependence, cigarettes, uncomplicated M10.9 Gout, unspecified I10 Essential (primary) hypertension R53.83 Other fatigue M15.9 Polyosteoarthritis, unspecified L20.9 Atopic dermatitis, unspecified M79.642 Pain in left hand M25.572 Pain in left ankle and joints of left foot H81.13 Benign paroxysmal vertigo, bilateral R51 Headache H54.7 Unspecified visual loss H10.45 Other chronic allergic conjunctivitis R06.02 Shortness of breath E55.9 Vitamin D deficiency, unspecified J20.9 Acute bronchitis, unspecified J01.40 Acute pansinusitis, unspecified H66.93 Otitis media, unspecified, bilateral R05 Cough R09.81 Nasal congestion M25.552 Pain in left hip M79.605 Pain in left leg M25.562 Pain in left knee Office Visit 05/28/2018 9:15a [facility] Janes Mcgowan J44.Whitney Chronic obstructive MNeris MCatarina. 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 F17.210 Nicotine dependence, cigarettes, uncomplicated M10.9 Gout, unspecified I10 Essential (primary) hypertension R53.83 Other fatigue M15.9 Polyosteoarthritis, unspecified L20.9 Atopic dermatitis, unspecified M79.642 Pain in left hand M25.572 Pain in left ankle and joints of left foot H81.13 Benign paroxysmal vertigo, bilateral R51 Headache H54.7 Unspecified visual loss H10.45 Other chronic allergic conjunctivitis R06.02 Shortness of breath E55.9 Vitamin D deficiency, unspecified J20.9 Acute bronchitis, unspecified J01.40 Acute pansinusitis, unspecified H66.93 Otitis media, unspecified, bilateral R05 Cough R09.81 Nasal congestion M25.552 Pain in left hip M79.605 Pain in left leg M25.562 Pain in left knee A09 Infectious gastroenteritis and colitis, unspecified Office Visit 10/24/2017 11:00a [facility] Janes Mcgowan J44.Whitney Chronic obstructive MNeris, MNerisD. 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 F17.210 Nicotine dependence, cigarettes, uncomplicated M10.9 Gout, unspecified I10 Essential (primary) hypertension R53.83 Other fatigue M15.9 Polyosteoarthritis, unspecified L20.9 Atopic dermatitis, unspecified M79.642 Pain in left hand M25.572 Pain in left ankle and joints of left foot H81.13 Benign paroxysmal vertigo, bilateral R51 Headache H54.7 Unspecified visual loss H10.45 Other chronic allergic conjunctivitis R06.02 Shortness of breath E55.9 Vitamin D deficiency, unspecified J20.9 Acute bronchitis, unspecified J01.40 Acute pansinusitis, unspecified H66.93 Otitis media, unspecified, bilateral R05 Cough R09.81 Nasal congestion Office Visit 09/19/2017 9:30a [facility] Janes Mcgowan J44.9 Chronic obstructive M., M.D. 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 F17.210 Nicotine dependence, cigarettes, uncomplicated M10.9 Gout, unspecified I10 Essential (primary) hypertension R53.83 Other fatigue M15.9 Polyosteoarthritis, unspecified L20.9 Atopic dermatitis, unspecified M79.642 Pain in left hand M25.572 Pain in left ankle and joints of left foot H81.13 Benign paroxysmal vertigo, bilateral R51 Headache H54.7 Unspecified visual loss H10.45 Other chronic allergic conjunctivitis R06.02 Shortness of breath E55.9 Vitamin D deficiency, unspecified J20.9 Acute bronchitis, unspecified J01.40 Acute pansinusitis, unspecified H66.93 Otitis media, unspecified, bilateral R05 Cough R09.81 Nasal congestion Office Visit 07/27/2017 10:15a [facility] Juan MJanes gordillo J44.9 Chronic obstructive M., M.D. 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 F17.210 Nicotine dependence, cigarettes, uncomplicated M10.9 Gout, unspecified I10 Essential (primary) hypertension R53.83 Other fatigue M15.9 Polyosteoarthritis, unspecified L20.9 Atopic dermatitis, unspecified M79.642 Pain in left hand M25.572 Pain in left ankle and joints of left foot H81.13 Benign paroxysmal vertigo, bilateral R51 Headache H54.7 Unspecified visual loss R06.02 Shortness of breath H10.45 Other chronic allergic conjunctivitis E55.9 Vitamin D deficiency, unspecified J01.40 Acute pansinusitis, unspecified R09.81 Nasal congestion R05 Cough J20.9 Acute bronchitis, unspecified H10.023 Other mucopurulent conjunctivitis, bilateral Office Visit 07/06/2017 10:15a [place] Janes Mcgowan J44.9 Chronic obstructive M., M.D. 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 F17.210 Nicotine dependence, cigarettes, uncomplicated M10.9 Gout, unspecified I10 Essential (primary) hypertension R53.83 Other fatigue M15.9 Polyosteoarthritis, unspecified L20.9 Atopic dermatitis, unspecified M79.642 Pain in left hand M25.572 Pain in left ankle and joints of left foot H81.13 Benign paroxysmal vertigo, bilateral R51 Headache R06.02 Shortness of breath H54.7 Unspecified visual loss R09.81 Nasal congestion J01.40 Acute pansinusitis, unspecified H66.93 Otitis media, unspecified, bilateral H92.01 Otalgia, right ear R05 Cough H10.023 Other mucopurulent conjunctivitis, bilateral H10.45 Other chronic allergic conjunctivitis Z00.01 Encounter for general adult medical exam w abnormal findings E55.9 Vitamin D deficiency, unspecified Office Visit 06/21/2017 10:30a [facility] Yin Nieto44.9 Chronic [place], [place] obstructive 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 F17.210 Nicotine dependence, cigarettes, uncomplicated M10.9 Gout, unspecified I10 Essential (primary) hypertension R53.83 Other fatigue M15.9 Polyosteoarthritis, unspecified L20.9 Atopic dermatitis, unspecified M79.642 Pain in left hand M25.572 Pain in left ankle and joints of left foot H81.13 Benign paroxysmal vertigo, bilateral R51 Headache R06.02 Shortness of breath R09.81 Nasal congestion H54.7 Unspecified visual loss J01.90 Acute sinusitis, unspecified J20.9 Acute bronchitis, unspecified R05 Cough M79.1 Myalgia Office Visit 05/17/2017 10:45a [facility] Janes Mcgowan J44.9 Chronic obstructive M., M.D. 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 F17.210 Nicotine dependence, cigarettes, uncomplicated M10.9 Gout, unspecified I10 Essential (primary) hypertension R53.83 Other fatigue M15.9 Polyosteoarthritis, unspecified L20.9 Atopic dermatitis, unspecified M79.642 Pain in left hand M25.572 Pain in left ankle and joints of left foot H81.13 Benign paroxysmal vertigo, bilateral R51 Headache R05 Cough R50.9 Fever, unspecified R06.02 Shortness of breath R09.81 Nasal congestion J20.9 Acute bronchitis, unspecified J01.40 Acute pansinusitis, unspecified H66.93 Otitis media, unspecified, bilateral H54.7 Unspecified visual loss H10.021 Other mucopurulent conjunctivitis, right eye R11.10 Vomiting, unspecified Office Visit 04/24/2017 11:15a [place] [facility] Janes Mcgowan J44.9 Chronic obstructive M., M.D. 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 F17.210 Nicotine dependence, cigarettes, uncomplicated M10.9 Gout, unspecified I10 Essential (primary) hypertension R53.83 Other fatigue M15.9 Polyosteoarthritis, unspecified L20.9 Atopic dermatitis, unspecified M79.642 Pain in left hand M25.572 Pain in left ankle and joints of left foot H81.13 Benign paroxysmal vertigo, bilateral R51 Headache R05 Cough R50.9 Fever, unspecified R06.02 Shortness of breath R09.81 Nasal congestion J20.9 Acute bronchitis, unspecified J01.40 Acute pansinusitis, unspecified H66.93 Otitis media, unspecified, bilateral H54.7 Unspecified visual loss Office Visit 03/23/2017 9:30a [place] [facility] Juan M, Lexislex J44.9 Chronic obstructive M., M.D. 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 F17.210 Nicotine dependence, cigarettes, uncomplicated M10.9 Gout, unspecified I10 Essential (primary) hypertension R53.83 Other fatigue M15.9 Polyosteoarthritis, unspecified L20.9 Atopic dermatitis, unspecified M79.642 Pain in left hand M25.572 Pain in left ankle and joints of left foot H81.13 Benign paroxysmal vertigo, bilateral R51 Headache R05 Cough R50.9 Fever, unspecified R06.02 Shortness of breath R09.81 Nasal congestion J20.9 Acute bronchitis, unspecified J01.40 Acute pansinusitis, unspecified H66.93 Otitis media, unspecified, bilateral H54.7 Unspecified visual loss Office Visit 03/02/2017 11:45a [place] [facility] Juan M, Lexislex J44.9 Chronic obstructive M., M.D. 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 F17.210 Nicotine dependence, cigarettes, uncomplicated M10.9 Gout, unspecified I10 Essential (primary) hypertension R53.83 Other fatigue M15.9 Polyosteoarthritis, unspecified L20.9 Atopic dermatitis, unspecified M79.642 Pain in left hand M25.572 Pain in left ankle and joints of left foot H81.13 Benign paroxysmal vertigo, bilateral R51 Headache R05 Cough R50.9 Fever, unspecified R06.02 Shortness of breath R09.81 Nasal congestion J20.9 Acute bronchitis, unspecified J01.40 Acute pansinusitis, unspecified H66.93 Otitis media, unspecified, bilateral H54.7 Unspecified visual loss Office Visit 02/23/2017 11:00a [place] [facility] Juan M, Lexislex H66.93 Otitis media, M., M.D. 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 F17.210 Nicotine dependence, cigarettes, uncomplicated M10.9 Gout, unspecified I10 Essential (primary) hypertension R53.83 Other fatigue M15.9 Polyosteoarthritis, unspecified L20.9 Atopic dermatitis, unspecified M79.642 Pain in left hand M25.572 Pain in left ankle and joints of left foot H81.13 Benign paroxysmal vertigo, bilateral Office Visit 11/29/2015 11:15a [place] Vinicius Simmons J01.40 Acute pansinusitis, [employer]AP [employer] unspecified H66.93 Otitis media, unspecified, bilateral J30.9 Allergic rhinitis, unspecified R09.81 Nasal congestion R50.9 Fever, unspecified R51 Headache Office Visit 07/09/2015 10:00a [place] Janes Mcgowan M., M25.562 Pain in left M.D. 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 J20.9 Acute bronchitis, unspecified J01.40 Acute pansinusitis, unspecified H66.93 Otitis media, unspecified, bilateral R06.02 Shortness of breath R05 Cough R09.81 Nasal congestion J44.9 Chronic obstructive pulmonary disease, unspecified J30.9 Allergic rhinitis, unspecified F17.210 Nicotine dependence, cigarettes, uncomplicated M10.9 Gout, unspecified I10 Essential (primary) hypertension R53.83 Other fatigue M15.9 Polyosteoarthritis, unspecified L20.9 Atopic dermatitis, unspecified M79.642 Pain in left hand M25.572 Pain in left ankle and joints of left foot Office Visit 06/29/2015 11:15a [facility] Juan M, Mirnahannah J20.9 Acute bronchitis, M., M.D. unspecified J01.40 Acute pansinusitis, unspecified H66.93 Otitis media, unspecified, bilateral R06.02 Shortness of breath R05 Cough R09.81 Nasal congestion J44.9 Chronic obstructive pulmonary disease, unspecified J30.9 Allergic rhinitis, unspecified F17.210 Nicotine dependence, cigarettes, uncomplicated M25.562 Pain in left knee M10.9 Gout, unspecified I10 Essential (primary) hypertension R53.83 Other fatigue M15.9 Polyosteoarthritis, unspecified L20.9 Atopic dermatitis, unspecified M79.642 Pain in left hand M25.572 Pain in left ankle and joints of left foot Office Visit 02/08/2015 9:30a [facility] Janes Mcgowan, 461.8 Sinusitis Acute M.DNeris Other 478.19 Other Disease Of Nasal Cavity And Sinuses 382.9 Otitis Media Unspec 496 COPD Airway Obstruction Chronic Not Class Elsewhere 477.8 Rhinitis Allergic Due To Other Allergen 780.4 Dizziness & Giddiness 401.1 Hypertension Benign 274.9 Gout Unspec 715.90 Osteoarthrosis Unspec Genlzd Or Localized Site Unspec 691.8 Dermatitis Atopic & Related Conditions Other 305.1 Tobacco Use Disorder 786.05 Shortness Of Breath Office Visit 02/02/2015 3:45p [facility] Vinicius Simmons SOAP MIXER 461.8 Sinusitis Acute Other 786.2 Cough 305.1 Tobacco Use Disorder 401.1 Hypertension Benign Office Visit 10/29/2014 11:45a [facility] Janes Mcgowan M.D. 274.9 Gout Unspec 719.44 Pain Joint Hand 715.90 Osteoarthrosis Unspec Genlzd Or Localized Site Unspec 782.3 Edema 496 COPD Airway Obstruction Chronic Not Class Elsewhere 305.1 Tobacco Use Disorder 477.8 Rhinitis Allergic Due To Other Allergen 691.8 Dermatitis Atopic & Related Conditions Other 401.1 Hypertension Benign 719.47 Pain Joint Ankle & Foot Office Visit 10/16/2014 8:30a [facility] Janes Mcgowan M.D. 274.9 Gout Unspec 719.44 Pain Joint Hand 715.90 Osteoarthrosis Unspec Genlzd Or Localized Site Unspec 782.3 Edema 496 COPD Airway Obstruction Chronic Not Class Elsewhere 305.1 Tobacco Use Disorder 477.8 Rhinitis Allergic Due To Other Allergen 691.8 Dermatitis Atopic & Related Conditions Other 401.1 Hypertension Benign V70.0 Examination General Medical Routine AT [facility] 719.47 Pain Joint Ankle & Foot Office Visit 10/09/2014 9:15a [facility] Janes Mcgowan M.D. 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.0 Injury Oculomotor Nerve 305.1 Tobacco Use Disorder 401.9 Hypertension Unspec 477.9 Rhinitis Allergic Cause Unspec 381.4 Otitis Media Acute Or Chronic Nonsuppurative Office Visit 04/29/2014 10:00a [facility] Cassidy Butt, 381.10 Otitis Media SOAP MIXER Simple Or Unspec Chronic 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 Other 786.2 Cough 478.19 Other Disease Of Nasal Cavity And Sinuses 382.9 Otitis Media Unspec 780.79 Malaise And Fatigue Other 496 COPD Airway Obstruction Chronic Not Class Elsewhere 715.90 Osteoarthrosis Unspec Genlzd Or Localized Site Unspec 305.1 Tobacco Use Disorder 477.9 Rhinitis Allergic Cause Unspec 786.05 Shortness Of Breath 780.4 Dizziness & Giddiness 787.01 Nausea W/ Vomiting Office Visit 12/18/2013 9:45a [facility] Janes Mcgowan, 461.8 Sinusitis Acute M.D. Other 786.2 Cough 478.19 Other Disease Of Nasal Cavity And Sinuses 382.9 Otitis Media Unspec 780.79 Malaise And Fatigue Other 496 COPD Airway Obstruction Chronic Not Class Elsewhere 715.90 Osteoarthrosis Unspec Genlzd Or Localized Site Unspec 305.1 Tobacco Use Disorder 477.9 Rhinitis Allergic Cause Unspec 786.05 Shortness Of Breath 780.4 Dizziness & Giddiness 787.03 Vomiting Alone Office Visit 11/17/2013 10:45a [facility] Janes Mcgowan M.D. 786.2 Cough 786.59 Pain Chest Other 478.19 Other Disease Of Nasal Cavity And Sinuses 382.9 Otitis Media Unspec 486 Pneumonia Organism Unspec 780.79 Malaise And Fatigue Other 496 COPD Airway Obstruction Chronic Not Class Elsewhere 715.90 Osteoarthrosis Unspec Genlzd Or Localized Site Unspec 305.1 Tobacco Use Disorder 477.9 Rhinitis Allergic Cause Unspec 786.05 Shortness Of Breath Office Visit 05/01/2013 10:00a [facility] Janes Mcgowan V70.0 Examination General Ayana Starks Medical Routine AT [facility] 305.1 Tobacco Use Disorder 715.90 Osteoarthrosis Unspec Genlzd Or Localized Site Unspec 496 COPD Airway Obstruction Chronic Not Class Elsewhere 477.9 Rhinitis Allergic Cause Unspec 466.0 Bronchitis Acute 786.2 Cough 461.8 Sinusitis Acute Other 382.9 Otitis Media Unspec V76.41 Screening Malignant Neoplasm Rectum V76.44 Screening For Malig Ant Prostate V85.21 Body Mass Index 25.0-25.9 Adult Office Visit 04/28/2013 2:00p [facility] Flory Garcia, 382.9 Otitis Media SOAP MIXER Unspec 478.19 Other Disease Of Nasal Cavity And Sinuses 461.8 Sinusitis Acute Other 388.70 Otalgia & Earache Unspec 786.2 Cough 466.0 Bronchitis Acute 780.79 Malaise And Fatigue Other 787.01 Nausea W/ Vomiting 305.1 Tobacco Use Disorder Office Visit 08/26/2012 12:15p [facility] Janes Mcgowan, 382.9 Otitis Media M.D. Unspec 478.19 Other Disease Of Nasal Cavity And Sinuses 461.8 Sinusitis Acute Other 388.70 Otalgia & Earache Unspec 786.2 Cough 305.1 Tobacco Use Disorder 386.11 Vertigo Benign Paroxysmal Position 786.05 Shortness Of Breath Office Visit 06/25/2012 10:30a [facility] Janes Mcgowan, 719.43 Pain Joint M.D. Forearm 782.3 Edema 496 COPD Airway Obstruction Chronic Not Class Elsewhere 305.1 Tobacco Use Disorder 729.5 Pain In Limb 478.19 Other Disease Of Nasal Cavity And Sinuses 536.8 Stomach Dyspepsia & Other Spec Disorders Of Function Office Visit 05/30/2012 9:45a [facility] Janes Mcgowan, 719.43 Pain Joint M.D. Forearm 782.3 Edema Office Visit 09/18/2011 10:00a [facility] Janes Mcgowan, 382.9 Otitis Media M.D. Unspec 786.05 Shortness Of Breath 466.0 Bronchitis Acute 786.59 Pain Chest Other Office Visit 06/02/2011 9:15a [facility] Janes Mcgowan, 382.9 Otitis Media M.D. Unspec 784.0 Headache 466.0 Bronchitis Acute 496 COPD Airway Obstruction Chronic Not Class Elsewhere 305.1 Tobacco Use Disorder Office Visit 04/07/2011 11:30a [facility] Janes Mcgowan, 382.9 Otitis Media M.D. Unspec 786.05 Shortness Of Breath 466.0 Bronchitis Acute 305.1 Tobacco Use Disorder Office Visit 08/26/2010 9:45a [facility] Janes Mcgowan, 719.47 Pain Joint Ankle M.D. & Foot 782.3 Edema Office Visit 11/30/2009 9:45a [facility] Janes Mcgowan M.D. 782.3 Edema 682.6 Cellulitis & Abscess Leg Except Foot 729.5 Pain In Limb Office Visit 11/23/2009 10:00a [facility] Janes Mcgowan M.D. 782.3 Edema 780.79 Malaise And Fatigue Other 682.6 Cellulitis & Abscess Leg Except Foot 729.5 Pain In Limb Plan of Treatment Future Appointment(s):08/13/2018 1:15 pm - Janes Mcgowan M.D. at [facility]
--- OUTSIDE RECORDS SUMMARY | 2018-09-05 09:48 | XMS REPORT | Continuity of Care Document ---
:1960 External Reference #:[id number] Author Name Janes Mcgowan M.D. 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 [address] [place] [address] Advance Directives Description No Information Available Problems [...] Smoker 1 Pack Daily Smoking Status Reviewed: 08/12/18 Current Cigarette Smoker 1 Pack Daily ETOH [...] mouth I10 Daquan, every day Kimberl y, UTILITY BAGGER Lisinopril-Hy 04/22/2014 Active Tablets 20-12.5mg 90tabs take 1 I10 Juan M, drochlorothia tablet by Janes morton mouth once M., daily in in M.D. the morning I10 Zyrtec Allergy 04/22/2014 Active Capsules 10mg OTC take 1 J30.9 Daquan, tablet at [place], bedtime UTILITY BAGGER as needed Tobramycin 07/26/2018 - Hx Solution 0.3% 5ml 2 drops Juan M, 07/30/2018 both eyes Ahmad M., three M.D. times a day Cipro 07/26/2018 - Hx Tablets 500mg 20tabs 1 tab by Juan M, 08/05/2018 mouth Ahmad M., twice a M.D. day Cipro 07/12/2018 - Hx Tablets 500mg 20tabs 1 tab by Juan M, 07/18/2018 mouth Ahmahannah M., twice a M.D. day Azithromycin 07/03/2018 - Hx Tablets 250mg 6tabs z xu uad Juan M, 07/12/2018 Ahmahannah Starks, M.D. Prednisone 05/28/2018 - Hx Tablets 20mg 20tabs 2 tab by M25.552 Juan M, 06/13/2018 mouth Ahmad M., daily 4 M.D. days,30x3 d,20x2d,1 0x7d Cipro 10/24/2017 - Hx Tablets 500mg 30tabs 1 tab by Juan M, 11/08/2017 mouth Ahmad M., twice a M.D. day Prednisone 10/24/2017 - Hx Tablets 20mg 20tabs 2 tab by Juan M, 11/09/2017 mouth Ahmad M., daily 4 M.D. days,30x3 d,20x2d,1 0x7d Cipro 09/19/2017 - Hx Tablets 500mg 30tabs 1 tab by Juan M, 09/29/2017 mouth Ahmad M., twice a M.D. day Prednisone 09/19/2017 - Hx Tablets 20mg 20tabs 2 tab by Juan M, 10/05/2017 mouth Ahmad M., daily 4 M.D. days,30x3 d,20x2d,1 0x7d Cipro 07/27/2017 - Hx Tablets 500mg 30tabs 1 tab by Andie Mcgowan, 08/09/2017 mouth Ahmad M., twice a M.D. [...] Tablets 875-125 20tabs 1 tab by Andie Mcgowan, 07/03/2017 mg mouth Ahmad M., twice a M.D. day x 10 days Tobramycin 05/17/2017 - Hx Solution 0.3% 10ml 2 drops [facility], 05/22/2017 both eyes Ahmad M., three M.D. times a day Amoxicillin/Clav 05/17/2017 - Hx Tablets 875-125 30tabs 1 tab by perla Barone 05/27/2017 mg mouth Ahmad M., Potassium twice a M.D. day Amoxicillin/Clav 04/24/2017 - Hx Tablets 875-125 30tabs 1 tab by perla Barone 05/07/2017 mg mouth Ahmad M., Potassium twice a M.D. day Prednisone 04/24/2017 - Hx Tablets 20mg 20tabs 2 tab by Andie Mcgowan, 05/15/2017 mouth Ahmad M., daily 4 M.D. days,30x3 d,20x2d,1 0x7d Amoxicillin/Clav 03/23/2017 - Hx Tablets 875-125 30tabs 1 tab by Andie Mcgowan juan manueleufemia 04/07/2017 mg mouth Ahmad M., Potassium twice a M.D. day Prednisone 03/23/2017 - Hx Tablets 20mg 20tabs 2 tab by Andie Mcgowan, 04/08/2017 mouth Ahmad M., daily 4 M.D. days,30x3 d,20x2d,1 0x7d Ciprofloxacin 02/23/2017 - Hx Tablets 500mg 30tabs 1 by Andie Mcgowan, HCL 03/05/2017 mouth Ahmad M., twice a M.D. day Prednisone 02/23/2017 - Hx Tablets 20mg 20tabs 2 tab by Andie Mcgowan, 03/11/2017 mouth Ahmad M., daily 4 M.D. days,30x3 d,20x2d,1 0x7d Ciprofloxacin 02/24/2016 - Hx Tablets 500mg 30tabs 1 by Andie Mcgowan, [facility] 03/10/2016 mouth Ahmad M., twice a M.D. day Prednisone 02/24/2016 - Hx Tablets 20mg 20tabs 2 tab by Andie Mcgowan, 03/11/2016 mouth Ahmad M., daily 4 M.D. days,30x3 d,20x2d,1 0x7d Amoxicillin 01/18/2016 - Hx Tablets 500mg 90tabs 2 tab by H66.93 [facility], 01/28/2016 mouth Ahmad M., three M.D. times a day Andie Prednisone 01/18/2016 - Hx Tablets 20mg 20tabs 2 tab by mouth daily 4 R06.02 [facility], 02/03/2016 days,30x3d,20x2d,10x7d Ahmad Raudel, M.D. M25.562 Andie Cipro 11/29/2015 - Hx Tablets 500mg 20tabs 1 twice a Juan M, mad 12/09/2015 day M., M.D. Amoxicillin 06/29/2015 - Hx Tablets 500mg 90tabs 2 tab by Andie [facility], mad 07/14/2015 mouth three M., M.D. times a day Prednisone 06/29/2015 - Hx Tablets 20mg 20tabs 2 tab by R06.02 [facility] 07[facility]2015 mouth daily Ayana tSarks 4 days,30x3d,2 0x2d,10x7d M25.562 J44.9 Prednisone 02/08/2015 - Hx Tablets 20mg 19tabs 2 tab by mouth daily 4 461.8 [facility], 02/25/2015 days,30x3d,20x2d,10x7d Janes Starks M.D. 786.05 461.8 Amoxicillin 02/08/2015 - Hx Capsules 500mg 40caps 2 by mouth 461.8 [facility] 02/08/2015 twice a day Ayana Starks 382.9 Biaxin 02/08/2015 - Hx Tablets 500mg 20tabs 1 tab by mouth 461.8 [facility] , [facility] 02/21/2015 twice a day Ayana Starks 382.9 Azithromycin 02/02/2015 - Hx Tablets 250mg 6tabs take two 461.8 [facility], 02/06/2015 tablets by royer Myers as one M.D. dose on the first day then take one daily thereafter x 4 days Allopurinol 10/30/2014 - Hx Tablets 100mg 90tabs 1 by mouth 274.9 [facility] , 10/30/2014 every day Janes Starks M.D. 719.44 719.47 Allopurinol 10/30/2014 - Hx Tablets 300mg 30tabs 1 tab by M10.9 Juan M, [facility] 06/18/2017 mouth every MRaudel CordonDNeris day M25.572 Colchicine 10/29/2014 - Hx Tablets 0.6mg 90tabs 1 tab by 274.9 Juan M, [facility] 10/30/2014 mouth three M., RaudelDNeris times a day as needed 719.44 719.47 Indomethacin 10/09/2014 - Hx Capsules 50mg 90caps 1 tab by 274.9 Juan M , [facility] 10/29/2014 mouth three M., MNerisDNeris times a day as needed 719.44 Amoxicillin 04/29/2014 - Hx Tablets 875mg 30tabs take 1 381.10 Daquan, 09/30/2014 tablet by Cassidy, mouth UTILITY BAGGER three times a day for 10 days Flonase 04/22/2014 - Hx Suspension 50mcg/Ac 16gm two sprays J30.9 Daquan , 07/06/2017 t per Cassidy, nostril UTILITY BAGGER once a day as needed for allergy relief No Active 12/18/2013 - Hx Unknown Medications 12/18/2013 Biaxin 12/18/2013 - Hx Tablets 500mg 20tabs 1 tab by 461.8 Juan [facility], [facility] 03/28/2014 mouth Ayana Starks twice a day x10 days No Active 11/17/2013 - Hx Juan M [facility] Medications 11/17/2013 Ayana Starks Amoxicillin 11/17/2013 - Hx Tablets 500mg 42tabs 1 by mouth 486 Juan M, [facility] 11/27/2013 three Ayana Starks times a day 382.9 Amoxicillin 04/28/2013 - Hx Tablets 500mg 30tabs 1 three 382.9 [facility] 05/08/2013 times a day Ayana Starks x10 day 461.8 466.0 Prednisone 04/28/2013 - Hx Tablets 20mg 19tabs 2 tab by mouth daily 4 496 [facility], 04/01/2014 days,30x3d,20x2d,10x7d Janes Starks M.D. 786.05 461.8 Amoxicillin 08/26/2012 - Hx Tablets 500mg 30tabs 1 three 382.9 Juan M, [facility] 09/06/2012 times a day Ayana Starks x10 day 461.8 Prednisone 08/26/2012 - Hx Tablets 20mg 8tabs 2 tab by 478.19 Juan [facility], [facility] 08/31/2012 mouth daily Ayana Starks 4 days Indocin 05/30/2012 - Hx Suppository 50mg 90units 1 three 719.43 Juan M lxe 02/19/2013 times a day Ayana Starks Medications Administered in Office Medication Date Status Form Strength Qnty SIG Indications Ordering Provider Lon Jefferson 11/24/19 Administered Injection Zbigniew Mcgowan M.D. Immunizations Description No Information Available Vital Signs Date Vital Result Comment 08/13/2018 12:52pm BP Systolic 110 mmHg BP Diastolic 68 mmHg Height 67 inches 5'7" Weight 159.00 lb BMI (Body Mass Index) 24.9 kg/m2 Heart Rate 79 /min Respiratory Rate 18 /min 08/06/2018 10:18am BP Systolic 122 mmHg BP [...] H/L Range Note Basic Metabolic 06/27/2018 [facility] [place] Sodium 138 mmol/L (136-145) Panel 113 INNOVATION [...] <SEE NOTE> 1 CBC Auto Diff 07/06/2017 [facility] White Blood Count 10.0 10^3/uL N 3.5-10.8 [...] Cells % 0 Comp Metabolic Panel 07/06/2017 [facility] Sodium 136 mmol/L N 133- 145 Potassium [...] Egfr 104.4 >60 2 Laboratory test 07/06/2017 [facility] TSH (Thyroid 1.36 mcIU/mL N 0.34-5.60 3 finding Stim Horm) Uric Acid 4.9 mg/dL N 4.4-7.6 4 Vitamin D Total 25(Oh) 15.8 ng/mL Low 20-50 5 Lyme Western Blot 06/21/2017 [facility] Lyme Disease IgG Negative Negative 6 Ab WB Lyme Disease IgG Bands Present No bands detecte <SEE NOTE> kDa 7 Lyme Disease IgM Ab WB Negative Negative Lyme Disease IgM Bands Present No bands detecte <SEE NOTE> kDa 8 Lyme Disease Interpretation See Comment 9 Rapid Influenza A 06/17/2017 [facility] Influenza A NEGATIVE Negative 10 & B Molecular Molecular Influenza B Molecular NEGATIVE Negative Glycohemoglobin A1c 10/09/2014 [place] Glycohemoglobin (A1c) 5.5 % 4.2- 6.3 11 eAG 111 mg/dL Laboratory test finding 10/09/2014 [place] Sedimentation Rate 11 mm/hr 0-20 Uric Acid 4.7 mg/dL 3.5-7.2 Rheumatoid Factor Screen < 10.0 IU/mL 0.0-15.0 Anti-Nuclear Antibodies Direct Positive AU/mL High Negative 12 Comprehensive Metabolic Panel 10/09/2014 [place] Glucose 85 mg/dL 74- 106 BUN 13 [...] 94 U/L 45-117 CBC W/Automated Diff 10/09/2014 [place] White Blood Count 8.6 K/uL 3.4- 10.5 [...] % 33.0-73.0 Lymph % 24.4 % 17.0-56.0 Kern % 13.8 % High 0.0-10.0 Eo% 2.1 % 0.0-5.0 Bas% 0.3 % 0.1-1.0 Neut# 5.10 K/uL 1.8-7.0 Lymph # 2.09 K/uL 1.8-7.0 Kern # 1.18 K/uL High 0.0-0.8 Eos # 0.18 K/uL 0.0-0.5 Baso # 0.03 K/uL Low 0.1-0.2 CBC/Manual Differential 04/22/2014 [place] White Blood Count 8.7 K/uL 3.4-10.5 Red [...] GIANT PLTS SEEN Comprehensive Metabolic Panel 04/22/2014 [place] Glucose 104 mg/dL 74- 106 BUN 13 [...] 86 U/L 45-117 LDL Cholesterol Profile 04/22/2014 [place] Cholesterol 209 mg/dL 17 Triglycerides 129 mg/dL 18 HDL Cholesterol 36 mg/dL 19 LDL-Cholesterol 147 mg/dL 20 Laboratory test finding 05/30/2012 [place] Uric Acid 4.2 mg/dL 2.1-7.4 Basic Metabolic Panel 05/30/2012 [place] Glucose 78 mg/dL 76-115 BUN 19 mg/dL 5-23 Creatinine 1.1 mg/dL 0.5-1.4 Glom Filtration Rate, Estimate >60 mL/min >60 If >60 mL/min >60 21 BUN/Creat 17.2 ratio Sodium 139 mmol/L 136-145 Potassium 4.3 mmol/L 3.5-5.1 Chloride 106 mmol/L 98-107 Carbon Dioxide 25 mEq/L 18-29 Anion Gap 12 mEq/L 8-16 Calcium 9.6 mg/dL 8.5-10.1 CBC W/Automated Diff 05/30/2012 [place] White Blood Count 7.4 K/uL 3.4- 10.5 [...] % 33.0-73.0 Lymph % 27.7 % 17.0-56.0 Kern % 9.2 % 0.0-10.0 Eo% 2.3 % 0.0-5.0 Bas% 0.3 % 0.1-1.0 Neut# 4.47 K/uL 1.8-7.0 Lymph # 2.05 K/uL 1.2-4.0 Kern # 0.68 K/uL High 0.0-0.6 Eos # [...] 5 Kidney failure <15 (or dialysis) 3 [id number] 4 [id number] 5 [id number] 6 [id number] 7 No bands detected 8 No bands [...] screening test (e.g., EIA). Test Performed by: [facility] [address] [place] [address] 10 Frame Stripper: [id number] 11 Elevated levels of HbA1c suggest the need for more aggressive treatment of glycemia. The [place] [employer] recommends that a primary goal of therapy should be a HbA1c of <7% and that physicians should re-evaluate the treatment regimen in patients with HbA1c values consistently >8%. 12 Performed at: RN - [facility] [address] [id number] Civil Draftsman: Ameena Floyd MD, Phone: [phone] 13 Note: Persistent reduction for 3 months [...] at [email or web address]. Procedures Date Code Description Status 08/13/2018 40759 EKG Completed 07/26/2018 65608 Tympanometry Completed 10/24/2017 69167 Tympanometry Completed 05/17/2017 43250 Spirometry Completed 05/17/2017 66608 Tympanometry Completed 03/23/2017 49101 Spirometry Completed 03/23/2017 21801 Tympanometry Completed 03/02/2017 36710 Visual Screening Test Completed 02/23/2017 28518 Spirometry Completed 02/23/2017 55302 Tympanometry Completed 02/24/2016 93250 Tympanometry Completed 02/24/2016 91437 Spirometry Completed 01/18/2016 45984 Spirometry Completed 01/18/2016 36883 Tympanometry Completed 11/29/2015 22143 Tympanometry Completed 06/29/2015 75218 Spirometry Completed 06/29/2015 24606 Tympanometry Completed 02/08/2015 59120 Spirometry Completed 02/08/2015 45766 Tympanometry Completed 04/29/2014 49514 EKG Completed 12/18/2013 43865 Tympanometry Completed 12/18/2013 63214 Spirometry Completed 11/17/2013 71747 Spirometry Completed 11/17/2013 09213 Tympanometry Completed 05/01/2013 47241 Visual Screening Test Completed 05/01/2013 93355 EKG Completed 05/01/2013 20767 Diagnostic Bekesy Audiometry Completed 04/28/2013 96271 Spirometry Completed 04/28/2013 55162 Tympanometry Completed 08/26/2012 05319 Tympanometry Completed 08/26/2012 86736 Spirometry Completed 06/18/2012 [id number] Colonoscopy Completed 09/18/2011 95664 Spirometry Completed 09/18/2011 53164 Tympanometry Completed 06/02/2011 98001 Spirometry Completed 06/02/2011 65104 Tympanometry Completed 04/07/2011 31794 Spirometry Completed 04/07/2011 79244 Tympanometry Completed 11/23/2009 79397 Injection DX/Therapeutic/Prophy Completed 01/09/2005 00393 Tympanometry Completed Encounters Type Date Location Provider Dx Diagnosis Office Visit 08/13/2018 [facility] Janes Mcgowan, J44.9 Chronic obstructive 1:15p M.D. 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9 Fever, unspecified R51 Headache Office Visit 07/09/2015 10:00a [facility] Janes Mcgowan, M25.562 Pain in left M.D. 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 unspecified J01.40 Acute pansinusitis, unspecified H66.93 [...] of left foot Office Visit 02/08/2015 9:30a [facility] Janes Mcgowan, 461.8 Sinusitis Acute M.D. Other 478.19 Other Disease Of Nasal Cavity [...] Shortness Of Breath Office Visit 02/02/2015 3:45p [facility] Vinicius Simmons UTILITY BAGGER 461.8 Sinusitis Acute Other 786.2 Cough 305.1 Tobacco Use Disorder 401.1 Hypertension Benign Office Visit 10/29/2014 11:45a [facility] Janes Mcgowan M.D. 274.9 Gout Unspec 719.44 Pain Joint Hand 715.90 Osteoarthrosis Unspec Genlzd Or Localized Site Unspec 782.3 Edema 496 COPD Airway Obstruction Chronic Not Class Elsewhere 305.1 Tobacco Use Disorder 477.8 Rhinitis Allergic Due To Other Allergen 691.8 Dermatitis Atopic & Related Conditions Other 401.1 Hypertension Benign 719.47 Pain Joint Ankle & Foot Office Visit 10/16/2014 8:30a [facility] Janes Mcgowan M.D. 274.9 Gout Unspec [...] Ankle & Foot Office Visit 10/09/2014 9:15a [facility] Janes Mcgowan M.D. 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 951.0 Injury Oculomotor Nerve 305.1 Tobacco Use Disorder 401.9 Hypertension Unspec 477.9 Rhinitis Allergic Cause Unspec 381.4 Otitis Media Acute Or Chronic Nonsuppurative Office Visit 04/29/2014 10:00a [facility] Cassidy Butt, 381.10 Otitis Media UTILITY BAGGER Simple Or Unspec Chronic 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 [...] Nausea W/ Vomiting Office Visit 12/18/2013 9:45a [facility] Janes Mcgowan 461.8 Sinusitis Acute M.D. Other 786.2 Cough [...] 787.03 Vomiting Alone Office Visit 11/17/2013 10:45a [facility] Janes Mcgowan M.D. 786.2 Cough 786.59 [...] Shortness Of Breath Office Visit 05/01/2013 10:00a [facility] Janes Mcgowan V70.0 Examination General Ayana [...] Index 25.0-25.9 Adult Office Visit 04/28/2013 2:00p [facility] Flory Garcia, 382.9 Otitis Media UTILITY BAGGER Unspec 478.19 Other Disease Of Nasal Cavity And Sinuses 461.8 Sinusitis Acute Other 388.70 Otalgia & Earache Unspec 786.2 Cough 466.0 Bronchitis Acute 780.79 Malaise And Fatigue Other 787.01 Nausea W/ Vomiting 305.1 Tobacco Use Disorder Office Visit 08/26/2012 12:15p [facility] Janes Mcgowan, 382.9 Otitis Media M.D. Unspec 478.19 Other Disease Of Nasal Cavity And Sinuses 461.8 Sinusitis Acute Other 388.70 Otalgia & Earache Unspec 786.2 Cough 305.1 Tobacco Use Disorder 386.11 Vertigo Benign Paroxysmal Position 786.05 Shortness Of Breath Office Visit 06/25/2012 10:30a [facility] Janes Mcgowan, 719.43 Pain Joint M.D. Forearm 782.3 Edema 496 COPD Airway Obstruction Chronic Not Class Elsewhere 305.1 Tobacco Use Disorder 729.5 Pain In Limb 478.19 Other Disease Of Nasal Cavity And Sinuses 536.8 Stomach Dyspepsia & Other Spec Disorders Of Function Office Visit 05/30/2012 9:45a [facility] Janes Mcgowan, 719.43 Pain Joint M.D. Forearm 782.3 Edema Office Visit 09/18/2011 10:00a [facility] Janes Mcgowan, 382.9 Otitis Media M.D. Unspec 786.05 Shortness Of Breath 466.0 Bronchitis Acute 786.59 Pain Chest Other Office Visit 06/02/2011 9:15a [facility] Janes Mcgowan, 382.9 Otitis Media M.D. Unspec 784.0 Headache 466.0 Bronchitis Acute 496 COPD Airway Obstruction Chronic Not Class Elsewhere 305.1 Tobacco Use Disorder Office Visit 04/07/2011 11:30a [facility] Janes Mcgowan, 382.9 Otitis Media M.D. Unspec 786.05 Shortness Of Breath 466.0 Bronchitis Acute 305.1 Tobacco Use Disorder Office Visit 08/26/2010 9:45a [facility] Janes Mcgowan, 719.47 Pain Joint Ankle M.D. & Foot 782.3 Edema Office Visit 11/30/2009 9:45a [facility] Janes Mcgowan M.D. 782.3 Edema 682.6 Cellulitis & Abscess Leg Except Foot 729.5 Pain In Limb Office Visit 11/23/2009 10:00a [facility] Janes Mcgowan M.D. 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:EXERCISE/HEAT/MESSAGE F/U WITH REMATOLOGY COUNCELLING AND IAZSFUZGEUWH42.210 Nicotine dependence, cigarettes , uncomplicatedComments:SMOKING CESSATION NRLXLEBZGCHH19.9 Gout, unspecifiedComments:EXERCISE/HEAT/MESSAGE TAKE MEDICATIONS DIRECTEDF/U DIRECTEDCALL WITH QUESTIONS OR CONCERNSWEIGHT BEARING [id number] Essential (primary) hypertensionComments:CHECK BP TIW ( PRN)DIET AND FLUID COUNSELING LOW SODIUM DIETWT LOSSF/U LAB SMOKING KCGEPPAMRP21.93 Otitis media, unspecified, toephbdgeN29.83 Other fatigueComments:INCRFEASE PO FLUIDCOUNCELLING AND REASSURANCE RESTM15.9 Polyosteoarthritis, unspecifiedComments:EXERCISE/HEAT/ MESSAGETYLENOL OR MOTRIN PRNAVOID HEAVY LIFTINGWT LOSSL20.9 Atopic dermatitis, unspecifiedComments:SKIN CARE INSTRUCTIONS LOTION OR BABY OIL 2-3 APPLICATION PER DAYUSE MOISTURIZING SOAPAVOID PROLONGED WATER EXPOSUREAVOID USING HOT WATER IN MTPDBBH02.642 Pain in left handComments:EXERCISE/HEAT/MESSAGE TYLENOL OR MOTRIN PRNAVOID HEAVY LIFTING TANI WRAP PRNELEVATE PRNM25.572 Pain in left ankle and joints of left footComments:EXERCISE/HEAT/MESSAGETYLENOL OR MOTRIN PRNACE WRAP PRN USE SHOES INSERTS/ PEHGYZVH02.13 Benign paroxysmal vertigo, bilateralComments:SAFETY SMOKING [id number] HeadacheComments:TYLENOL OR MOTRIN PRNH54.7 Unspecified visual lossComments:F/U ROBIN OPHTHOLMOLOGY SWYKOMGK68.02 Shortness of breathComments:INCREASE PO FLUIDRESTSMOKING EKZMTFAQNY05.45 Other chronic allergic conjunctivitisComments:EYE CARE INSTRUCTIONS SMOKING ROQUXWYEEB99.9 Vitamin D deficiency, unspecifiedComments: INCREASE EXPOSURE TO SUNREVIEW OF DIETM25.552 Pain in left hipComments:EXERCISE/ HEAT/MESSAGETYLENOL OR MOTRIN PRNAVOID HEAVY LIFTINGWT LOSSM79.605 Pain in left legComments:TYLENOL OR MOTRIN PRN EXERCISE/HEAT/RRJXAPCT08.562 Pain in left kneeComments:EXERCISE/HEAT /MESSAGEAVOID HEAVY LIFTING WT LOSSTYLENOL OR MOTRIN PRNZ01.818 Encounter for other preprocedural examinationComments:MEDICALLY CLEAREDF/U WITH ORTHO
[2018-09-05] MEDS ORDERED: ceFAZolin 2 GM in NS PREMIX(*) 2 GM/100 ML BAG IVPB ONE (10:38)
[2018-09-05] MEDS: Buffered Lidocaine 1% SYRIN* 1 ML/SYRINGE INTRADERM ONE (10:49)
[2018-09-05] MEDS ORDERED: Lidocaine 2% PF * 5 ML VIAL ONE ×2 (11:40)
[2018-09-05] MEDS ORDERED: Midazolam* 1 MG/ML 2 ML VIAL (2 MG) ONE (11:40)
[2018-09-05] MEDS ORDERED: Rocuronium* 10 MG/ML VIAL ONE (11:40)
[2018-09-05] MEDS ORDERED: fentaNYL* 50 MCG/ML 2 ML VIAL (100 MCG VIAL) ONE ×2 (11:40→12:16)
[2018-09-05] MEDS ORDERED: Propofol* 10 MG/ML 20 ML BTL ONE (11:40)
--- NOTE | 2018-09-05 15:25 | ECHO ---
Patient: RAHEEL RUANO [facility] Rec#: [id number] : 1960 Date: 09/05/2018 Age: 58y Height: 168 cm / 66.1 in Weight: 69.9 kg / 154.1 lbs Sex: M BSA: 1.8 Room#: PACU 7 Admit Date#: 09/05/2018 Type: Inpatient Referring: Raheel Elina Reading: Jam Reis MD Flow Nurse: Talita Ortiz RN RDCS CC: Janes Mcgowan MD Transthoracic Echocardiogram Indication: Cardiac murmur BP: 127/74 HR: 59 Rhythm: NSR Findings History: HTN, COPD, smoker Technical Comments: The study quality is fair. The study is technically limited due to the patient's history of COPD. The study is technically limited due to the patient's smoking history. Left Ventricle: The left ventricular chamber size is normal. Mild concentric left ventricular hypertrophy is observed. Global left ventricular wall motion and contractility are within normal limits. There is normal left ventricular systolic function. The estimated ejection fraction is 55-60%. The assessment of diastolic function is non-diagnostic. Left Atrium: The left atrial chamber size is normal. Right Ventricle: The right ventricular chamber size and systolic function are within normal limits. Right Atrium: The right atrial cavity size is normal. Aortic Valve: The aortic valve structure is not well visualized. The aortic valve is trileaflet.and moderately sclerotic. The aortic valve leaflets are moderately thickened. There is trace to mild aortic regurgitation. There is borderline aortic stenosis present. The mean gradient of the aortic valve is 10 mmHg. The peak instantaneous gradient of the aortic valve is 18 mmHg. Highest aortic valve velocity was acquired with Pedoff in apical position. Mitral Valve: Mild mitral annular calcification present. The mitral valve leaflets are mildly thickened. There is trace to mild mitral regurgitation. Tricuspid Valve: The tricuspid valve leaflets are normal. There is trace to mild tricuspid regurgitation. No pulmonary hypertension is noted. Pulmonic Valve: The pulmonic valve structure is not well visualized. There is no evidence of pulmonic regurgitation. There is no pulmonic stenosis. Pericardium: There is no significant pericardial effusion. Aorta: The ascending aorta is not well visualized. There is no dilatation of the aortic arch. There is no dilation of the aortic root. Pulmonary Artery: The main pulmonary artery is not well visualized. Venous: The inferior vena cava appears normal in size. There is a greater than 50% respiratory change in the inferior vena cava dimension. Conclusions There is normal left ventricular systolic function. The estimated ejection fraction is 55-60%. Global left ventricular wall motion and contractility are within normal limits. The left ventricular chamber size is normal. Mild concentric left ventricular hypertrophy is observed. Normal cardiac chamber sizes. Functionally benign heart valves. There is no prior echocardiogram available to compare with at this time. Results discussed with ordering physician, Dr. Pickering. Measurements Name Value Normal Range RVIDd (AP) 2D 2.6 cm (0.9 - 2.6) RVDdMajor (2D) 3.1 cm (2.2 - 4.4) RAd ISD 4CH 4.4 cm (3.4 - 4.9) RA (A4C)W 3.1 cm (2.9 - 4.6) IVSd (2D) 1.1 cm (0.6 - 1) LVPWd (2D) 1.1 cm (0.6 - 1) LVIDd (2D) 4.4 cm (3.6 - 5.4) LVIDs (2D) 2.5 cm - LV FS (2D) 43 % (25 - 45) Aortic Annulus 2.1 cm (1.4 - 2.6) Ao root diameter (2D) 3.2 cm (2.1 - 3.5) Aortic arch 2.4 cm (1.8 - 3.4) LA dimension (AP) 2D 2.9 cm (2.3 - 3.8) LAd ISD 4CH 4.4 cm (2.9 - 5.3) LA ISD 4CH W 3.6 cm (2.5 - 4.5) Name Value Normal Range LA ESV BP (A/L) index 18.9 ml/m2 - Name Value Normal Range MV E-wave Vmax 0.79 m/sec - MV deceleration time 254 msec - MV A-wave Vmax 1 m/sec - MV E:A ratio 0.8 ratio - LV septal e' Vmax 0.08 m/sec - LV lateral e' Vmax 0.11 m/sec - LV E:e' septal ratio 9.9 ratio - LV E:e' lateral ratio 7.2 ratio - Name Value Normal Range AV Vmax 2.1 m/sec - AV VTI 45.2 cm - AV peak gradient 18 mmHg - AV mean gradient 10 mmHg - LVOT diameter 2.1 cm - LVOT Vmax 1.1 m/sec - LVOT VTI 20.6 cm - LVOT peak gradient 4 mmHg - LVOT mean gradient 2 mmHg - DOI (VTI) 0.52 ratio - DOI (Vmax) 0.46 ratio - SEAN (continuity Vmax) 1.8 cm2 - SEAN (continuity VTI) 1.73 cm2 - AR PHT 548 msec - LIDIA Vmax 0.61 m/sec - Name Value Normal Range TR Vmax 2.4 m/sec - TR peak gradient 23 mmHg - RAP 3 mmHg - RVSP 26 mmHg - IVC diameter 2 cm - Name Value Normal Range PV Vmax 0.82 m/sec -
[2018-09-05] MEDS ORDERED: Phenylephrine 10 MG/ML VIAL* 1 ML VIAL ONE (16:17)
[2018-09-05] MEDS ORDERED: Dexamethasone IV* 4 MG/ML 1 ML (4 MG) ONE (16:17)
[2018-09-05] MEDS ORDERED: Metoclopramide IV* 5 MG/ML 2 ML VIAL ONE (16:19)
[2018-09-05] MEDS ORDERED: Ondansetron INJ* 2 MG/ML VIAL ONE (16:19)
[2018-09-05] MEDS ORDERED: Ketorolac INJ* 30 MG/ML 1 ML VIAL ONE (16:19)
[2018-09-05] MEDS ORDERED: KETAMINE HCL* 50 MG/ML 10 ML VIAL ONE (16:55)
[2018-09-05] MEDS ORDERED: EPHEDrine (Pressors)* 50 MG/ML VIAL ONE ×2 (16:56→17:36)
[2018-09-05] MEDS ORDERED: Acetaminophen IV 1GM/100ML * 100 ML ONE (17:32)
[2018-09-05] MEDS ORDERED: HYDROmorphone INJ1* 1 MG/ML SYRINGE ONE ×2 (17:52→18:39)
[2018-09-05] MEDS ORDERED: Neostigmine Methylsulfate* 1 MG/ML 10 ML VIAL (1 mg/ml) ONE (17:57)
[2018-09-05] MEDS ORDERED: Glycopyrrolate IV* 0.2 MG/ML 1 ML VIAL ONE (17:57)
[2018-09-05] MEDS ORDERED: Morphine 4 MG/ML VIAL (1 ml) 4 MG/ML VIAL IV PRN (18:11)
[2018-09-05] MEDS ORDERED: Magnesium Hydroxide LIQ* 30 ML UDC PO PRN (18:11)
[2018-09-05] MEDS ORDERED: Bisacodyl SUPP* 10 MG SUPP PR PRN (18:11)
[2018-09-05] MEDS ORDERED: Cyclobenzaprine TAB* 10 MG PO PRN (18:11)
[2018-09-05] MEDS ORDERED: oxyCODONE/Acetamin 5/325 MG* TAB PO PRN (18:11)
[2018-09-05] MEDS ORDERED: Ondansetron INJ* 2 MG/ML VIAL IV PRN (18:11)
[2018-09-05] MEDS ORDERED: Polyethylene Glycol 3350* 17 GM PACKET PO PRN (18:11)
[2018-09-05] MEDS ORDERED: diPHENhydraMINE IV* 50 MG/ML 1 ml VIAL (BENADRYL) IV PRN (18:11)
[2018-09-05] MEDS ORDERED: Ondansetron TAB* 4 MG PO PRN (18:11)
[2018-09-05] MEDS ORDERED: Cetirizine* 10 MG TAB PO PRN (18:14)
[2018-09-05] MEDS ORDERED: Albuterol/Ipratropium NEB.SOL* Albuterol 2.5 MG/Ipratropium 0.5 MG 3 ML INH PRN (18:55)
[2018-09-05] MEDS: Lactated Ringers 1000 ML Bag* 1,000 ML IV SCH (21:26)
--- NOTE | 2018-09-05 21:54 | OP ---
DATE OF OPERATION: 09/05/18 - ROOM #350 DATE OF : 56 SURGEON: Windy Diane MD SKIING TEACHER: OMAR Maharaj. Ms. Solis did help throughout the procedure with preparation of the leg, wound retraction, manipulation of the hip, and wound closure. ANESTHESIOLOGIST: Dr. Pickering. ANESTHESIA: General. 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 OPERATIVE PROCEDURE: Left total hip arthroplasty. ESTIMATED BLOOD LOSS: 200 cc. COMPLICATIONS: None. SPECIMEN: Femoral head and acetabular reaming sent to Pathology. HARDWARE USED: Uncemented [place] total hip arthroplasty hardware. For the acetabular cup, a Tritanium cluster hole shell 52D, a single 20 mm screw was used. For the the liner, a Trident X3, 0 degree polyethylene insert 32D. For the stem, an Accolade II size 5 with a 127-degree neck. For the head, a 32, +0 ceramic V40 Biolox delta femoral head. BRIEF HISTORY/INDICATION: Mr. Liu is a 58-year-old gentleman with years of increasingly severe left hip pain. He failed conservative treatment with physical therapy, ambulatory assistive devices, antiinflammatories, and pain medications. Radiographs showed advanced arthritis with significant avascular necrosis in the femoral head. Due to continued pain and decreased quality of life, he elected to undergo left total hip arthroplasty. Informed consent was obtained from the patient. He understood the risks of surgery included, but were not limited to, bleeding, infection, damage to nearby structures, continued pain, need for further surgery, intraoperative fracture, nerve palsy, hardware failure or loosening, dislocation, leg length discrepancy, stroke, heart attack, blood clot, and . He wished to proceed. INTRAOPERATIVE FINDINGS: Intraoperatively, the patient was noted to have severe end-stage arthritis with complete loss of cartilage in the acetabulum and femoral head. Femoral head had significant cystic changes. He has significant osteophyte formation along the superior and posterior acetabular rim. DESCRIPTION OF PROCEDURE: Mr. Liu was identified in the preanesthesia unit. His left lower extremity was marked as the correct operative side. Informed consent was signed and placed in the chart. The patient was taken to the operating room and placed under general anesthesia. A Bland catheter was placed. The patient was placed in the right lateral decubitus position on the peg board. All bony prominences were well padded. Left lower extremity was prepped and draped in the usual sterile fashion. Preop time-out was made to correctly identify the patient, side, and site. Appropriate perioperative antibiotics were given within 1 hour of incision. A posterior hip incision of 10 cm was made and carried down to the lateral fascial layer. Lateral fascial layer was incised in line with the skin incision. Charnley retractor was placed. The piriformis and conjoint tendons were identified and elevated off the posterolateral femur using electrocautery. These were tagged with #5 Ethibond. Electrocautery was then used to make a standard posterolateral capsular flap and this was also tagged with #5 Ethibond. The hip was carefully dislocated. Lesser troch to center to the femoral head measured 60 mm. Oscillating saw was used to make the appropriate femoral neck cut. The femoral head was removed. The femur was carefully retracted anteriorly. After appropriate placement of retractor, the acetabulum was well visualized. A long handle knife was used to sharply remove any remaining labrum from the acetabular rim. The acetabulum was sequentially reamed up to a size 51. A 51 reamer obtained a bleeding subchondral bone bed. A 51 trial had excellent fit and stability. The final implant chosen was a 52 . The cup was stable with appropriate anteversion and abduction angle. A single 20 mm screw was placed in the superoposterior quadrant for extra stability. The liner chosen was a Trident X3 , 0-degree liner 32D. This was impacted into the acetabulum without difficulty. The liner was noted to be stable. Next, attention was turned to preparation of the femoral canal. A canal finder was used to enter the proximal femur. The femoral canal was sequentially broached up to a size broach. The 5 broach had excellent stability and appropriate anteversion. A 36 , +0 head was chosen. Lesser troch to center of the femoral head measured 61 mm. The hip was reduced and taken through a range of motion. The hip was stable in all positions. There was good soft tissue tension and appropriate leg lengths. All trials were carefully removed. The final hardware chosen was an Accolade II size 5 stem with a 127-degree neck. This was impacted into the femoral canal without difficulty. The stem was stable with appropriate anteversion. At 32, +0 ceramic Biolox delta V40 was then impacted onto the femoral neck. Finally, lesser troch to the center of the femoral head measurement was 60 mm. The hip was reduced and taken through a range of motion. The hip was stable in all positions. There was good soft tissue tension and appropriate leg lengths. The hip was copiously irrigated with sterile saline. Previously tagged tendons and capsule were reapproximated to the posterolateral femur through 2 trochanteric drill holes. The lateral fascial layer was closed using interrupted #1 Vicryls. The rest of the incision was closed in a layered fashion using 0 and 2-0 Vicryls. Skin was closed using running 3-0 Monocryl with Dermabond. Sterile Adaptic, 4x4s, and paper tape were used to cover the incision. The patient's anesthesia was reversed without difficulty. He was taken to the PACU in stable condition. Intended weightbearing with be weightbearing as tolerated. Intended DVT prophylaxis will be Eliquis. [id number]/[facility] #: [id number] F F THOMPSON HOSPITALXimena
[2018-09-05] MEDS: Docusate CAP* 100 MG PO SCH (22:34)
[2018-09-05] MEDS: Magnesium Hydroxide LIQ* 30 ML UDC PO SCH (22:34)
[2018-09-05] MEDS: Acetaminophen TAB* 325 MG PO SCH (22:34)
[2018-09-05] MEDS: oxyCODONE TAB* 5 MG TAB PO PRN (22:34)
[2018-09-06] MEDS: ceFAZolin 1 GM in Dextrose (*) 1 GM/50 ML BAG IVPB SCH ×3 (00:25→18:10)
--- NOTE | 2018-09-06 00:54 | CONS ---
CC: Dr. Windy Diane; Dr. Boubacar Braden; Dr. Gigi Strong * CONSULTATION REPORT: DATE OF CONSULT: 09/05/18 CONSULTING PROVIDER: Dr. Windy Diane. MY ATTENDING WHILE IN THE HOSPITAL: Dr. Boubacar Braden. PRIMARY CARE PROVIDER: Dr. Gigi Strong REASON FOR CONSULT: Comanagement of comorbid medical conditions. HISTORY OF PRESENT ILLNESS: Mr. Liu is a 58-year-old male with past medical history significant for hypertension, COPD, and concern for rheumatoid arthritis , who is status post elective left total hip arthroplasty with Dr. Windy Diane. The patient is examined in the postoperative period. The patient is still recovering from anesthesia. The patient has significant pain from his left hip. The patient denies other pain, shortness of breath, chest pain, dizziness, nausea, vomiting, fevers or chills. The patient had a preoperative echocardiogram due to heart murmur which showed functioning benign heart valve and mild concentric left ventricular hypertrophy. No other signs of reduced ejection fraction or notable abnormalities. The patient denies recent illness. No recent changes in medication. The patient most recently took ibuprofen approximately 2 weeks ago. The patient has never been evaluated for his rheumatoid arthritis. The patient is on no medications for this. The patient had approximately 250 mL of blood loss intraoperatively, had spinal anesthesia. The patient has no numbness or tingling in his lower extremities at this point and has full motor function. The patient denies abdominal pain or other complaint. PAST MEDICAL HISTORY: Hypertension, COPD, possible rheumatoid arthritis, osteoarthritis, BPPV. PAST SURGICAL HISTORY: None. MEDICATIONS: 1. Lisinopril/hydrochlorothiazide 20/12.5 one tab p.o. daily. The patient did not take it this morning. 2. Fluticasone nasal spray as needed. 3. Zyrtec Allergy 10 mg p.o. as needed. 4. Hydrocodone/acetaminophen 10/325 one tab p.o. q.4 hours as needed. 5. Ibuprofen 800 mg p.o. q.8 hours as needed. 6. Tylenol 1000 mg p.o. q.4 hours as needed. ALLERGIES: ERYTHROMYCIN. FAMILY HISTORY: The patient's mother has diabetes and is otherwise alive and well. The patient's father in 60s of unknown cause. The patient's sister has Raynaud phenomenon, but no other known family history. SOCIAL HISTORY: The patient has smoked for most of his adult life, 1 to 2 packs per day. The patient smokes occasional marijuana. Never drank alcohol. 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 The patient lives alone. The patient does not like to elect a surrogate decision maker at this time. REVIEW OF SYSTEMS: A 14-point review of systems was reviewed and negative except as above in the HPI. PHYSICAL EXAM: General: The patient is a 58-year-old male who appears older than stated age and sitting comfortably in bed, in no acute distress. Vital Signs: At the time of evaluation, temperature 96.8, pulse rate 78, respiratory rate 22, oxygen saturation 98% on room air, blood pressure 126/75. HEENT: Head is normocephalic, atraumatic. Sclerae anicteric. No conjunctival injection. Nasal mucosa moist. Oral mucosa moist. No oropharyngeal erythema, discharge or exudate. Neck: Supple, nontender. No lymphadenopathy. No carotid bruits auscultated. No JVD. Cardiac: Regular rate and rhythm. No clicks, murmurs, gallops, or rubs. Pulses are 2+ in the dorsalis pedis, posterior tibialis and radial areas. Respiratory: Clear to auscultation bilaterally. No wheezes, rales, or rhonchi. Good air exchange bilaterally. Abdomen: Soft, nontender, nondistended. Bowel sounds present and normoactive in all 4 quadrants. No hepatospleno-megaly. No abdominal bruits auscultated. No hepatojugular reflux. Genitourinary: No suprapubic or CVA tenderness. Bland in place draining clear yellow urine. Skin: Left hip incision covered in bulky dressing. No rash. Neuro: Cranial nerves II through XII intact. No focal deficits. Alert and oriented x3. No weakness of the lower extremities or sensory deficit. Psychiatric: Pleasant and cooperative. DIAGNOSTIC STUDIES/LAB DATA: Preoperatively, white blood cell count 8.5, hemoglobin 14.2, platelet count 283. INR 0.9 and aPTT 32.0. Sodium 138, potassium 4.2, chloride 102, carbon dioxide 29, anion gap 7, BUN 16, creatinine 1.01, glucose 86, calcium 9.7, bilirubin 0.3, AST 14, ALT 9, alkaline phosphatase 69. Protein 6.0, albumin 4.3, globulin 2.5. Urine benign. ASSESSMENT AND PLAN: Impression: Ms. Liu is a 58-year-old male with past medical history significant only for chronic obstructive pulmonary disease, hypertension, possible rheumatoid arthritis, who is status post left total hip arthroplasty and is having issues with pain control postoperatively, is otherwise doing well. 1. Postoperative state management per Orthopedics. The patient should have pain control. The patient received Dilaudid to good effect in the PACU. The patient should have fluids per postoperative protocol. The patient should have physical therapy and occupational therapy when able. The patient will have DVT prophylaxis with apixaban per Orthopedic. The patient should have H and H monitored. 2. Chronic obstructive pulmonary disease. The patient do not take any medications at home. The patient will have DuoNebs available as needed while in the hospital, the patient is not currently in exacerbation. 3. Hypertension. The patient is currently normotensive. We will hold the patient's antihypertensives due to spinal anesthesia and resume when indicated. 4. Rheumatoid arthritis. The patient is not on any medications for this. The patient will follow up with electrical sign wirer as outpatient. No further workup will be undertaken, and the patient does not have any cutaneous signs or other extra- articular manifestations of rheumatoid arthritis. 5. DVT prophylaxis with apixaban. 6. FEN: The patient will have fluids as above and regular unrestricted diet, advance as tolerated from clear liquids. 7. Code status: The patient would like to be a full code. 8. Disposition: Per Orthopedics. TIME SPENT: Approximately 40 minutes was spent on this consultation, 20 of which was spent [id number] with the patient obtaining history and physical and discussing treatment plan. Plan was discussed with my attending Dr. Boubacar Braden, and he is in agreement. OMAR DEAN [id number]/[facility] #: [id number] JEY
[2018-09-06] MEDS: oxyCODONE/Acetamin 5/325 MG* TAB PO PRN ×3 (03:29→23:07)
[2018-09-06 05:36] LABS: Hematocrit 36 % (36-46); Hemoglobin 11.6 g/dL (14.0-18.0); Mean Platelet Volume 7.4 fL (7.4-10.4); Platelet Count 216 10^3/uL (150-450)
[2018-09-06 05:53] LABS: BUN/Creatinine Ratio 18.6 (8-20); Calcium 9.1 mg/dL (8.6-10.3); EGFR African American 90.1 (>60); EGFR Non-African American 74.5 (>60); Potassium 4.6 mmol/L (3.5-5.0)
[2018-09-06] MEDS: Acetaminophen TAB* 325 MG PO SCH ×3 (06:05→21:00)
[2018-09-06] MEDS: Lactated Ringers 1000 ML Bag* 1,000 ML IV SCH (06:44)
[2018-09-06] MEDS: Apixaban* 2.5 MG TAB PO SCH ×2 (08:07→20:58)
[2018-09-06] MEDS: Docusate CAP* 100 MG PO SCH ×2 (08:08→20:58)
[2018-09-06] MEDS: Magnesium Hydroxide LIQ* 30 ML UDC PO SCH ×2 (08:08→20:58)
[2018-09-06] MEDS: oxyCODONE TAB* 5 MG TAB PO PRN ×2 (08:11→12:55)
[2018-09-06] MEDS ORDERED: Lisinopril/HCTZ 20/12.5(NF) TAB PO SCH (09:00)
[2018-09-06] MEDS: traMADol TAB* 50 MG PO PRN (10:40)
[2018-09-06] MEDS: Buffered Lidocaine 1% SYRIN* 1 ML/SYRINGE INTRADERM ONE (10:51)
--- NOTE | 2018-09-06 12:44 | PN ---
Progress Note - Progress Note Date of Service: 09/06/18 SOAP: Subjective: []Patient seen OOB in chair. He worked with PT this am and did ok but does not feel ready to go home today. His BP has been running a little low but denies SOB , CP, palpitations or dizziness. Objective: [] Vital Signs Temp 98.6 F 09/06/18 12:16 Pulse 71 09/06/18 12:16 Resp 16 09/06/18 12:16 BP 105/71 09/06/18 12:16 Pulse Ox 96 09/06/18 12:16 Intake & Output 09/05/18 09/06/18 09/06/18 18:59 06:59 18:59 Intake Total 1000 2955 1404 Output Total 100 600 400 Balance 900 2355 1004 Weight 154 lb Intake: IV Fluids 1000 900 689 LR 1000 900 689 IVPB 55 55 ABX - CEFAZOLIN 55 55 Oral 1800 660 Bland Irrigate Amount 200 Output: Urine 400 Bland 100 600 Other: # Bowel Movements 0 Laboratory Results - last 24 hr 09/05/18 09/06/18 09/06/18 22:32 04:45 04:45 Hgb 11.6 L Hct 36 Plt Count 216 MPV 7.4 Sodium 132 L Potassium 4.6 Chloride 100 L Carbon Dioxide 25 Anion Gap 7 BUN 19 Creatinine 1.02 Est GFR ( Amer) 90.1 Est GFR (Non-Af Amer) 74.5 BUN/Creatinine Ratio 18.6 Glucose 148 H Calcium 9.1 Magnesium 1.7 L Left hip dressing dry and intact calf NT and soft +DF left ankle sensation and circulation intact distally Assessment: []s/p left total hip arthroplasty POD #1 Plan: []PT/OT WBAT LLE Eliquis 2.5 mg BID for DVT prophylaxis Hold BP meds for hypotension, medicine recommending f/u PCP 1 week. Dressing change 09/07, with possible discharge home
[2018-09-07] MEDS: oxyCODONE/Acetamin 5/325 MG* TAB PO PRN ×2 (02:57→08:46)
[2018-09-07] MEDS: traMADol TAB* 50 MG PO PRN (03:49)
[2018-09-07] MEDS: Acetaminophen TAB* 325 MG PO SCH ×3 (05:01→22:04)
[2018-09-07 05:54] LABS: Hematocrit 32 % (36-46); Hemoglobin 10.6 g/dL (14.0-18.0); Mean Platelet Volume 7.7 fL (7.4-10.4); Platelet Count 207 10^3/uL (150-450)
[2018-09-07] MEDS: Docusate CAP* 100 MG PO SCH ×2 (08:46→22:03)
[2018-09-07] MEDS: Apixaban* 2.5 MG TAB PO SCH ×2 (08:46→22:04)
[2018-09-07] MEDS: Magnesium Hydroxide LIQ* 30 ML UDC PO SCH ×2 (08:47→22:05)
--- NOTE | 2018-09-07 12:25 | PN ---
Progress Note - Progress Note Date of Service: 09/07/18 SOAP: Subjective: Pt seen at bedside. States that he feels a little unstable when walking. Pain well controlled. Denies CP, SOB, F/C. Vital Signs: Temp Pulse Resp BP Pulse Ox 98.3 F 65 20 113/49 96 09/07/18 07:39 09/07/18 07:39 09/07/18 08:46 09/07/18 07:39 09/07/18 08:00 Laboratory Last Values Hgb 10.6 g/dL (14.0-18.0) L 09/07/18 05:09 Hct 32 % (36-46) L 09/07/18 05:09 Plt Count 207 10^3/uL (150-450) 09/07/18 05:09 MPV 7.7 fL (7.4-10.4) 09/07/18 05:09 Sodium 132 mmol/L (135-145) L 09/06/18 04:45 Potassium 4.6 mmol/L (3.5-5.0) 09/06/18 04:45 Chloride 100 mmol/L (101-111) L 09/06/18 04:45 Carbon Dioxide 25 mmol/L (22-32) 09/06/18 04:45 Anion Gap 7 mmol/L (2-11) 09/06/18 04:45 BUN 19 mg/dL (6-24) 09/06/18 04:45 Creatinine 1.02 mg/dL (0.67-1.17) 09/06/18 04:45 Est GFR ( Amer) 90.1 (>60) 09/06/18 04:45 Est GFR (Non-Af Amer) 74.5 (>60) 09/06/18 04:45 BUN/Creatinine Ratio 18.6 (8-20) 09/06/18 04:45 Glucose 148 mg/dL (70-100) H 09/06/18 04:45 Calcium 9.1 mg/dL (8.6-10.3) 09/06/18 04:45 Magnesium 1.7 mg/dL (1.9-2.7) L 09/05/18 22:32 Objective: A&O x3, NAD, Dressing changed, Incision C/D/I, Calves soft and nontender, No edema, NVI. Assessment: 58 yo male s/p Left JACK POD #2 Plan: OOB, PT/OT WBAT Pain control DVT prophylaxis - Eliquis 2.5 BID Likely D/C home tomorrow
[2018-09-07] MEDS: oxyCODONE TAB* 5 MG TAB PO PRN ×3 (13:15→23:41)
[2018-09-08] MEDS: oxyCODONE TAB* 5 MG TAB PO PRN ×2 (04:39→09:01)
[2018-09-08] MEDS: Acetaminophen TAB* 325 MG PO SCH (05:25)
[2018-09-08 05:40] LABS: Hematocrit 34 % (36-46); Hemoglobin 11.1 g/dL (14.0-18.0); Mean Platelet Volume 7.2 fL (7.4-10.4); Platelet Count 216 10^3/uL (150-450)
--- NOTE | 2018-09-08 08:43 | PN ---
Progress Note - Progress Note Date of Service: 09/08/18 SOAP: Subjective: Pt seen at bedside, eating breakfast. Pain is well controlled. No new complaints today. Denies CP, SOB, F/C. Vital Signs: Temp Pulse Resp BP Pulse Ox 98.1 F 68 18 108/64 94 09/08/18 03:14 09/08/18 03:14 09/08/18 07:53 09/08/18 03:14 09/08/18 03:14 Laboratory Last Values Hgb 11.1 g/dL (14.0-18.0) L 09/08/18 05:25 Hct 34 % (36-46) L 09/08/18 05:25 Plt Count 216 10^3/uL (150-450) 09/08/18 05:25 MPV 7.2 fL (7.4-10.4) L 09/08/18 05:25 Sodium 132 mmol/L (135-145) L 09/06/18 04:45 Potassium 4.6 mmol/L (3.5-5.0) 09/06/18 04:45 Chloride 100 mmol/L (101-111) L 09/06/18 04:45 Carbon Dioxide 25 mmol/L (22-32) 09/06/18 04:45 Anion Gap 7 mmol/L (2-11) 09/06/18 04:45 BUN 19 mg/dL (6-24) 09/06/18 04:45 Creatinine 1.02 mg/dL (0.67-1.17) 09/06/18 04:45 Est GFR ( Amer) 90.1 (>60) 09/06/18 04:45 Est GFR (Non-Af Amer) 74.5 (>60) 09/06/18 04:45 BUN/Creatinine Ratio 18.6 (8-20) 09/06/18 04:45 Glucose 148 mg/dL (70-100) H 09/06/18 04:45 Calcium 9.1 mg/dL (8.6-10.3) 09/06/18 04:45 Magnesium 1.7 mg/dL (1.9-2.7) L 09/05/18 22:32 Objective: A&O x3, NAD, Dressing C/D/I, Calves soft and nontender, No edema, NVI distally. Assessment: 58 yo male s/p left JACK POD #3 Plan: OOB, PT/OT WBAT Pain control DVT prophylaxis - Eliquis 2.5 BID D/C home today F/u with Dr. Diane in 10-14 days
[2018-09-08] MEDS: Apixaban* 2.5 MG TAB PO SCH (09:01)
[2018-09-08] MEDS: Docusate CAP* 100 MG PO SCH (09:02)
[2018-09-08 09:39] VITALS: BP 97/66
--- NOTE | 2018-09-08 22:18 | DS ---
DISCHARGE SUMMARY: DATE OF ADMISSION: 09/05/18 DATE OF DISCHARGE: 09/08/18 ATTENDING PHYSICIAN: Dr. Windy Diane.* (DICTATED BY OMAR TAYLOR) PRINCIPAL DIAGNOSIS: Left hip pain due to end-stage osteoarthritis. SECONDARY DIAGNOSES: 1. Hypertension. 2. Chronic obstructive pulmonary disease. PRINCIPAL PROCEDURE: Left total hip arthroplasty. REASON FOR HOSPITALIZATION: Mr. Liu is a 58-year-old male with persistent complaints of left hip pain due to end-stage osteoarthritis of his left hip. He had failed conservative treatment and elected to proceed with left total hip arthroplasty with Dr. Diane on 09/05/18. HOSPITAL COURSE: The patient was admitted to the hospital on 09/05/18 for anticipated left total hip arthroplasty with Dr. Diane. He underwent surgery without any complications. He was transferred to the recovery room and subsequently the surgical stay unit in a stable condition. The patient has participated in physical therapy and occupational therapy throughout the hospital course. He has done well with his therapy. He has been weightbearing as tolerated on the left lower extremity. DVT prophylaxis has been carried out with Eliquis 2.5 mg b.i.d. His hemoglobin and hematocrit have been checked throughout the hospital course. His hemoglobin was 11.1 and hematocrit 34 on the day of discharge. Vital signs remained stable throughout the hospital course including remaining afebrile. He has had no other complications or events and he has been discharged on 09/08/18 in a stable condition. DISCHARGE INSTRUCTIONS: Weightbearing as tolerated. Wound care, okay to shower on postop day #3. No bathing, swimming, submerging wound. Use gentle soap, pat dry, cover with gauze, Allan wrap or tape. Call orthopedic office for increased pain or redness, increased pain or fever. Go to the ER with shortness of breath or chest pain. Diet: Regular diet. Increase fluids and fiber to prevent constipation. Continue with use of stool softeners, call office if no bowel motions within 48 hours. Continue with hip precautions, do not cross legs or bend greater than 90 degrees or squat. Continue physical therapy and occupational therapy, exercises as shown. Visiting home nurse to do wound checks. DVT prophylaxis: Eliquis 2.5 mg twice a day for 1 month. Pain control with Percocet 5/325 mg 1 to 2 tabs by mouth every 4 to 6 hours as needed for pain, maximum daily dose of 10 tabs per day. Antibiotics required prior to any dental work. Follow up with Dr. Diane within 10 to 14 days, call for an appointment. Please call our office with any questions, . OMAR TAYLOR [id number]/[facility] #: [id number] JEY
== END 2018-09-08 10:50 | disposition home health service (06) | DRG 301 ==
LOC: AA 09:44 → SSU 20:29
PROVIDERS: ADMIT Orthopaedic Surgery Adult Reconstructive Orthopaedic Surgery; ATTEND Orthopaedic Surgery Adult Reconstructive Orthopaedic Surgery
PROC: 0SRB04A Replacement of Left Hip Joint with Ceramic on Polyethylene Synthetic Substitute, Uncemented, Open Approach (ICD-10-PCS; principal; 2018-09-05 14:00)
DX: M16.12 Unilateral primary osteoarthritis, left hip (principal); M87.9 Osteonecrosis, unspecified; I10 Essential (primary) hypertension; H49.01 Third [oculomotor] nerve palsy, right eye; I35.0 Nonrheumatic aortic (valve) stenosis; J44.9 Chronic obstructive pulmonary disease, unspecified; F17.210 Nicotine dependence, cigarettes, uncomplicated; E78.5 Hyperlipidemia, unspecified; M25.752 Osteophyte, left hip; J30.9 Allergic rhinitis, unspecified; H54.7 Unspecified visual loss; M10.9 Gout, unspecified; L20.9 Atopic dermatitis, unspecified; I95.9 Hypotension, unspecified; Z82.49 Family history of ischemic heart disease and other diseases of the circulatory system; Z88.1 Allergy status to other antibiotic agents; Z83.3 Family history of diabetes mellitus
CPT/HCPCS: 36415; 80048; 83735; 85014; 85018; 85049; 88304; 88311; 93306; A9270-GY; C1713; C1776; J0690; J1100; J1170; J1885; J2250; J2405; J2704; J2710; J2765; J3010; J3475